=== PATIENT | female | born 1970 | race Caucasian/White ===

== ENCOUNTER 2018-06-28 15:29 | Inpatient (IN) | payer BC ==
[~2018-06-28] VITALS: Ht 149.9 cm; Wt 52.5 kg
[2018-06-28] MEDS ORDERED: FAMOTIDINE 20 MG TAB PO STA (16:06)
[2018-06-28] MEDS ORDERED: LIDOCAINE/MYLANTA 40 ML BTL PO STA (16:06)
--- NOTE | 2018-06-28 16:08 | ERD ---
ER Documentation Chief Complaint Chief Complaint Complaains of abdominal pain x3 days HPI This is a 48-year-old female presents for abdominal pain for 3 days. Pain is epigastric with radiation to the right upper quadrant, she denies fever, she endorses nausea, but no vomiting. She has no chest pain or shortness of breath. Her pain is worsened by food, is not alleviated by anything. Currently his pain is about a 5 out of 10. ROS All systems reviewed and are negative except as per history of present illness. FmHx Family History: diabetes Physical Exam Vitals Vital Signs Date Temp Pulse Resp B/P (MAP) Pulse Ox O2 O2 Flow FiO2 Time Delivery Rate 06/28/18 98.9 62 19 146/76 100 Room Air 20:46 (99) 06/28/18 98.4 58 18 145/85 100 Room Air 18:46 (105) 06/28/18 98.1 84 18 150/89 98 Room Air 18:43 (109) 06/28/18 98.0 80 20 166/92 100 15:34 (116) Physical Exam Const: No acute distress Head: Atraumatic Eyes: Normal Conjunctiva ENT: Normal External Ears, Nose and Mouth. Neck: Full range of motion. No meningismus. Resp: Clear to auscultation bilaterally Cardio: Regular rate and rhythm, no murmurs Abd: Soft, tenderness over the epigastric area, non distended. Normal bowel sounds Skin: No petechiae or rashes Back: No midline or flank tenderness Ext: No cyanosis, or edema Neur: Awake and alert Psych: Normal Mood and Affect Result Diagram: 06/28/18 1625 06/28/18 1625 Results 24 hrs Laboratory Tests Test 06/28/18 16:25 White Blood Count 11.7 10^3/ul Red Blood Count 4.79 10^6/ul Hemoglobin 14.5 g/dl Hematocrit 42.4 % Mean Corpuscular Volume 88.5 fl Mean Corpuscular Hemoglobin 30.3 pg Mean Corpuscular Hemoglobin Concent 34.2 g/dl Red Cell Distribution Width 11.7 % Platelet Count 289 10^3/UL Mean Platelet Volume 9.1 fl Immature Granulocytes % 0.600 % Neutrophils % 84.3 % Lymphocytes % 10.7 % Monocytes % 3.9 % Eosinophils % 0.1 % Basophils % 0.4 % Nucleated Red Blood Cells % 0.0 /100WBC Immature Granulocytes # 0.070 10^3/ul Neutrophils # 9.9 10^3/ul Lymphocytes # 1.3 10^3/ul Monocytes # 0.5 10^3/ul Eosinophils # 0.0 10^3/ul Basophils # 0.1 10^3/ul Nucleated Red Blood Cells # 0.0 10^3/ul Prothrombin Time 12.7 Sec Prothrombin Time Ratio 1.0 INR International Normalized Ratio 0.94 Urine Color YELLOW Urine Clarity CLOUDY Urine pH 7.0 Urine Specific [place] 1.020 Urine Ketones NEGATIVE mg/dL Urine Nitrite NEGATIVE mg/dL Urine Bilirubin NEGATIVE mg/dL Urine Urobilinogen NEGATIVE mg/dL Urine Leukocyte Esterase NEGATIVE [place]/ul Urine Microscopic RBC 11 /HPF Urine Microscopic WBC 3 /HPF Urine Squamous Epithelial Cells MODERATE /HPF Urine Bacteria FEW /HPF Urine Mucus FEW /HPF Urine Hemoglobin 2+ mg/dL Urine Glucose NEGATIVE mg/dL Urine Total Protein 1+ mg/dl Sodium Level 139 mmol/L Potassium Level 3.5 mmol/L Chloride Level 102 mmol/L Carbon Dioxide Level 30 mmol/L Anion Gap 7 Blood Urea Nitrogen 14 mg/dl Creatinine 0.60 mg/dl Est Glomerular Filtrat Rate mL/min > 60 mL/min Glucose Level 104 mg/dl Calcium Level 9.6 mg/dl Total Bilirubin 0.1 mg/dl Direct Bilirubin 0.00 mg/dl Indirect Bilirubin 0.1 mg/dl Aspartate Amino Transf (AST/SGOT) 39 IU/L Alanine Aminotransferase (ALT/SGPT) 24 IU/L Alkaline Phosphatase 54 IU/L Troponin I < 0.012 ng/ml Total Protein 8.0 g/dl Albumin 4.5 g/dl Globulin 3.50 g/dl Albumin/Globulin Ratio 1.28 Lipase 64 U/L Current Medications Medications Dose Sig/Abigail Start Time Status Last (Trade) Ordered Route PRN Stop Time Admin Dose Reason Admin Famotidine 20 mg ONCE STAT 06/28/18 DC 06/28/18 (Pepcid) PO 16:06 06/28/18 17:04 16:08 40 ml ONCE STAT 06/28/18 DC 06/28/18 Miscellaneous PO 16:06 06/28/18 17:04 Medication 16:08 (Gi Cocktail (2)) IV Flush 10 ml STK-MED 06/28/18 DC 06/28/18 (NS 10 ml) ONCE .ROUTE 19:55 06/28/18 20:45 19:56 Sodium 100 ml @ ud STK-MED 06/28/18 DC 06/28/18 Chloride ONCE .ROUTE 19:55 06/28/18 20:45 19:56 Iohexol 150 ml STK-MED 06/28/18 DC 06/28/18 (Omnipaque ONCE .ROUTE 19:55 06/28/18 20:45 300mg/ ml) 19:56 Procedures/MDM This is a very pleasant 48-year-old female presents with nausea and epigastric pain. Her LFTs were unremarkable, her ultrasound showed a possible hemangioma, this is further evaluated with a CT of the abdomen pelvis with liver protocol. This showed a 6 cm liver cyst, given her symptoms, and the underlying possibility of an infection, I treated empirically with Zosyn, and recommended admission for further workup, which includes possible IR drainage. Patient was agreeable to plan, she remained hemodynamically stable in the ED, she had no evidence of sepsis or severe sepsis. She was admitted to Dr. Soto Departure Diagnosis: Primary Impression: Abdominal pain Abdominal location: unspecified location Qualified Codes: R10.9 - U nspecified abdominal pain Additional Impression: Hepatic cyst Condition: Stable DEAN RODRIGUEZ MD Jun 28, 2018 16:08
[2018-06-28] MEDS ORDERED: SOD CHLORIDE 0.9% 100 ML ONE (19:55)
[2018-06-28] MEDS ORDERED: IOHEXOL 300MG/ML 150 ML BTL ONE (19:55)
[2018-06-28] MEDS ORDERED: PIPER-TAZO 3.375 GM IV (PMX) 100 ML IVPB ONE (22:00)
[2018-06-28 22:50] VITALS: BP 150/81; PULSE 56; RESP 17
[2018-06-28 23:07] VITALS: Ht 149.9 cm; Wt 52.5 kg
[2018-06-29] MEDS ORDERED: HYDROCODONE/APAP (5/325) TAB PO PRN ×2 (00:30→01:30)
[2018-06-29] MEDS ORDERED: NACL 0.9% 3 ML SYG IV SCH (01:30)
[2018-06-29] MEDS ORDERED: ACETAMINOPHEN 325 MG TAB PO PRN (01:30)
[2018-06-29] MEDS ORDERED: ONDANSETRON 4 MG INJ IV PRN (01:30)
--- NOTE | 2018-06-29 01:44 | HP ---
Date/Time of Note Date/Time of Note DATE: 06/29/18 TIME: 01:43 Assessment/Plan VTE Prophylaxis SCD applied (from Nsg): Yes SCD contraindicated: low risk/ambulating Pharmacological prophylaxis: NA/contraindicated Pharm contraindication: low risk/ambulating Lines/Catheters IV Catheter Type (from Nrsg): Saline Lock Assessment/Plan Assessment/Plan 1. Right upper quadrant pain, possibly secondary to hepatic cyst versus biliary given dilated CBD -Contact IR in the morning to see if this can be drained -Consider MRCP -GI consult given dilated CBD -Pain management and 2. Dilated CBD: See above 3. Central L4-5 disc protrusion: Noted on CT abdomen/pelvis -No alarming sign. see HPI Result Diagram: 06/28/18 1625 06/28/18 1625 Results 24hrs Laboratory Tests Test 06/28/18 16:25 White Blood Count 11.7 H Red Blood Count 4.79 Hemoglobin 14.5 Hematocrit 42.4 Mean Corpuscular Volume 88.5 Mean Corpuscular Hemoglobin 30.3 Mean Corpuscular Hemoglobin Concent 34.2 Red Cell Distribution Width 11.7 Platelet Count 289 Mean Platelet Volume 9.1 Immature Granulocytes % 0.600 H Neutrophils % 84.3 H Lymphocytes % 10.7 L Monocytes % 3.9 Eosinophils % 0.1 Basophils % 0.4 Nucleated Red Blood Cells % 0.0 Immature Granulocytes # 0.070 H Neutrophils # 9.9 H Lymphocytes # 1.3 Monocytes # 0.5 Eosinophils # 0.0 Basophils # 0.1 Nucleated Red Blood Cells # 0.0 Prothrombin Time 12.7 Prothrombin Time Ratio 1.0 INR International Normalized Ratio 0.94 Urine Color YELLOW Urine Clarity CLOUDY A Urine pH 7.0 Urine Specific [place] 1.020 Urine Ketones NEGATIVE Urine Nitrite NEGATIVE Urine Bilirubin NEGATIVE Urine Urobilinogen NEGATIVE Urine Leukocyte Esterase NEGATIVE Urine Microscopic RBC 11 H Urine Microscopic WBC 3 Urine Squamous Epithelial Cells MODERATE Urine Bacteria FEW A Urine Mucus FEW A Urine Hemoglobin 2+ H Urine Glucose NEGATIVE Urine Total Protein 1+ H Sodium Level 139 Potassium Level 3.5 Chloride Level 102 Carbon Dioxide Level 30 Anion Gap 7 Blood Urea Nitrogen 14 Creatinine 0.60 Est Glomerular Filtrat Rate mL/min > 60 Glucose Level 104 Calcium Level 9.6 Total Bilirubin 0.1 L Direct Bilirubin 0.00 Indirect Bilirubin 0.1 Aspartate Amino Transf (AST/SGOT) 39 Alanine Aminotransferase (ALT/SGPT) 24 Alkaline Phosphatase 54 Troponin I < 0.012 Total Protein 8.0 Albumin 4.5 Globulin 3.50 H Albumin/Globulin Ratio 1.28 Lipase 64 HPI/ROS Admit Date/Time Admit Date/Time Jun 28, 2018 at 21:43 Hx of Present Illness This is a 48-year-old female with a history of hypertension and dyslipidemia who presented to ER complaining of abdominal pain. Pain has been progressively getting worse. Mainly localized in the right upper quadrant area and also in epigastric area. Also reported nausea. Denied fever/chills, chest pain or shortness of breath. Reported similar symptoms years ago. When presented to ER, abdominal ultrasound shows Fluid collection adjacent to or within the liver anteriorly measuring 6.2 x 4.3 x 6.4 cm. This may be due to hematoma. There is an adjacent hyperechoic nodule in the liver measuring 1.4 x 1.4 x 2.4 cm which may be a hemangioma as well as CBD dilated at 6.[address] abdomen/pelvis shows. This was followed by CT abdomen/pelvis stated that the ultrasound finding is consistent with dominant hepatic cysts measuring 6.2 x 6 x 4.3 cm. Also noted on the CT of leiomyoma and central L4-5 disc protrusions. 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 Only reported occasional pain. no alarming symptoms. PMH/Family/Social Past Medical History PMH/Family/Social Past Medical History Medical History: other (see hpi) Coded Allergies: No Known Drug Allergy (Verified Allergy, Unknown, 02/08/16) Past Surgical History Past Surgical Hx: other (see hpi) Family History Significant Family History: no pertinent family hx Social History Alcohol Use: other Smoking Status: Unknown if ever smoked Drug Use: other Medications Current Medications Acetaminophen/ Hydrocodone Bitart ([place] (5/325)) 1 tab Q6H PRN PO SEVERE PAIN LEVEL 7-10 Last administered on 06/29/18at 01:29; Admin Dose 1 TAB; Start 06/29/18 at 00:30 Acetaminophen (Tylenol Tab) 650 mg Q6H PRN PO MILD PAIN(1-3)OR ELEVATED TEMP; Start 06/29/18 at 00:30 IV Flush (NS 3 ml) 3 ml PER PROTOCOL IV ; Start 06/29/18 at 01:30; Status UNV Ondansetron HCl (Zofran Inj) 4 mg Q6H PRN IV NAUSEA AND/OR VOMITING; Start 06/29/18 at 01:30; Status UNV Acetaminophen (Tylenol Tab) 650 mg Q6H PRN PO PAIN LEVEL 1-3 OR FEVER; Start 06/29/18 at 01:30; Status UNV Acetaminophen/ Hydrocodone Bitart ([place] (5/325)) 1 tab Q6H PRN PO MODERATE PAIN LEVEL 4-6; Start 06/29/18 at 01:30; Status UNV Acetaminophen/ Hydrocodone Bitart ([place] (5/325)) 2 tab Q6H PRN PO SEVERE PAIN LEVEL 7-10; Start 06/29/18 at 01:30; Status UNV Coded Allergies: No Known Allergies (Verified Allergy, Unknown, 06/29/18) Social History Smoking Status: Never smoker Exam/Review of Systems Vital Signs Vitals Vital Signs Date Temp Pulse Resp B/P (MAP) Pulse Ox O2 O2 Flow FiO2 Time Delivery Rate 06/28/18 98.1 56 17 150/81 97 22:50 (104) 06/28/18 Room Air 20:46 Exam Constitutional: other (No acute distress) Head: normocephalic, atraumatic Eyes: EOMI, PERRL Respiratory: clear to auscultation, normal air movement Cardiovascular: regular rate and rhythm, nl pulses Gastrointestinal: soft, tender Extremities: normal pulses SANTANA RICE MD Jun 29, 2018 01:43
[2018-06-29 02:22] VITALS: BP 160/90; PULSE 59; RESP 18
[2018-06-29 03:30] VITALS: BP 149/85
[2018-06-29 08:00] VITALS: BP 125/72; PULSE 64; RESP 18
[2018-06-29] MEDS: HYDROCODONE/APAP (5/325) TAB PO PRN ×2 (10:02→13:20)
--- NOTE | 2018-06-29 13:55 | CONS ---
Date/Time of Note Date/Time of Note DATE: 06/29/18 TIME: 13:38 Assessment/Plan Assessment/Plan Hospital Course Summary Assessment and Plan: Assessment: Right upper abdominal pain Left hepatic lobe dominant hepatic cyst, on imaging -Estimated at 6.2 x 6 x 4.3 cm Dilated CBD Elevated aminotransferase Plan: Monitor labs MRCP pending AFP/Hepatitis panel- already ordered and currently pending Ct guided drainage of hepatic cyst - fluid studies Patient seen in collaboration with Dr. Gutierrez Result Diagram: 06/29/18 0553 06/29/18 0553 Results 24hrs Laboratory Tests Test 06/28/18 16:25 06/29/18 05:53 White Blood Count 11.7 H 10.5 Red Blood Count 4.79 4.58 Hemoglobin 14.5 14.1 Hematocrit 42.4 41.0 Mean Corpuscular Volume 88.5 89.5 Mean Corpuscular Hemoglobin 30.3 30.8 Mean Corpuscular Hemoglobin Concent 34.2 34.4 Red Cell Distribution Width 11.7 12.1 Platelet Count 289 304 Mean Platelet Volume 9.1 9.6 Immature Granulocytes % 0.600 H 0.400 Neutrophils % 84.3 H 85.9 H Lymphocytes % 10.7 L 9.9 L Monocytes % 3.9 3.1 Eosinophils % 0.1 0.2 Basophils % 0.4 0.5 Nucleated Red Blood Cells % 0.0 0.0 Immature Granulocytes # 0.070 H 0.040 H Neutrophils # 9.9 H 9.0 H Lymphocytes # 1.3 1.0 Monocytes # 0.5 0.3 Eosinophils # 0.0 0.0 Basophils # 0.1 0.1 Nucleated Red Blood Cells # 0.0 0.0 Prothrombin Time 12.7 Prothrombin Time Ratio 1.0 INR International Normalized Ratio 0.94 Urine Color YELLOW Urine Clarity CLOUDY A Urine pH 7.0 Urine Specific [place] 1.020 Urine Ketones NEGATIVE Urine Nitrite NEGATIVE Urine Bilirubin NEGATIVE Urine Urobilinogen NEGATIVE Urine Leukocyte Esterase NEGATIVE Urine Microscopic RBC 11 H Urine Microscopic WBC 3 Urine Squamous Epithelial Cells MODERATE Urine Bacteria FEW A Urine Mucus FEW A Urine Hemoglobin 2+ H Urine Glucose NEGATIVE Urine Total Protein 1+ H Sodium Level 139 142 Potassium Level 3.5 3.9 Chloride Level 102 102 Carbon Dioxide Level 30 29 Anion Gap 7 11 Blood Urea Nitrogen 14 14 Creatinine 0.60 0.66 Est Glomerular Filtrat Rate mL/min > 60 > 60 Glucose Level 104 111 Calcium Level 9.6 9.1 Total Bilirubin 0.1 L 0.5 Direct Bilirubin 0.00 0.00 Indirect Bilirubin 0.1 0.5 Aspartate Amino Transf (AST/SGOT) 39 139 H Alanine Aminotransferase (ALT/SGPT) 24 83 H Alkaline Phosphatase 54 46 Troponin I < 0.012 Total Protein 8.0 7.3 Albumin 4.5 4.1 Globulin 3.50 H 3.20 Albumin/Globulin Ratio 1.28 1.28 Lipase 64 Phosphorus Level 4.0 Magnesium Level 2.4 CC: KIERSTEN GUTIERREZ ; Consultation Date/Type/Reason Admit Date/Time Jun 28, 2018 at 21:43 Date of Consultation: Jun 29, 2018 Type of Consult GI Reason for Consultation RUQ pain Abnormal imaging Hx of Present Illness This is a 48-year-old female with a history of hypertension and dyslipidemia who presented to ER with progressive RUQ pain radiating to back/right shoulder asso ciated with nausea and non-bloody vomiting. Imaging was obtained in the ED bladder ultrasound shows a fluid collection adjacent to or within the liver anteriorly, this may be due to hematoma. There is an adjacent hyper cardiac nodule in the liver 3 1.4 x 1.4 x 2.4 which may be an hemangioma, dilated common bile duct measuring 6.[address] abdomen/pelvis with and without contrast and liver protocol was obtained showing abnormality in the left hepatic lobe from the ultrasound is consistent with a dominant hepatic cyst with the attenuated suggesting some internal debris but there is no solid component to the abnormality or enhancement between the different phases of imaging. A smaller lesion slightly anterior and inferior to the dominant cyst has a enhancement characteristics typical of a hepatic hemangioma., Smaller left hepatic lobe cysts are also noted, hepatic steatosis with borderline hepatomegaly. 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 Currently patient denies abdominal pain post pain medication no further episodes of nausea or vomiting. She denies melena or hematochezia. Review of Systems: A 12 system, review was conducted and is negative except as noted in the HPI or here. Past Medical History Medications Current Medications Acetaminophen (Tylenol Tab) 650 mg Q6H PRN PO MILD PAIN(1-3)OR ELEVATED TEMP; Start 06/29/18 at 00:30 IV Flush (NS 3 ml) 3 ml PER PROTOCOL IV ; Start 06/29/18 at 01:30 Ondansetron HCl (Zofran Inj) 4 mg Q6H PRN IV NAUSEA AND/OR VOMITING; Start 06/29/18 at 01:30 Acetaminophen (Tylenol Tab) 650 mg Q6H PRN PO PAIN LEVEL 1-3 OR FEVER; Start 06/29/18 at 01:30 Acetaminophen/ Hydrocodone Bitart ([place] (5/325)) 1 tab Q6H PRN PO MODERATE PAIN LEVEL 4-6 Last administered on 06/29/18at 13:20; Admin Dose 1 TAB; Start 06/29/18 at 01:30 Acetaminophen/ Hydrocodone Bitart ([place] (5/325)) 2 tab Q6H PRN PO SEVERE PAIN LEVEL 7-10; Start 06/29/18 at 01:30 Allergies: Coded Allergies: No Known Allergies (Verified Allergy, Unknown, 06/29/18) Social History Smoking Status: Never smoker Exam/Review of Systems Vital Signs Vitals Vital Signs Date Temp Pulse Resp B/P (MAP) Pulse Ox O2 O2 Flow FiO2 Time Delivery Rate 06/29/18 98.1 64 18 125/72 98 Room Air 08:00 (89) Exam PHYSICAL EXAMINATION: GENERAL: Well developed, well nourished, alert & oriented x 3, in no acute distress SKIN: No lesions EYES: Pupils equal reactive to light and accommodation, no discharge. EARS/NOSE AND THROAT: Ears normal, nose normal. NECK: Supple, no masses CHEST: Inspection within normal limits. CARDIOVASCULAR: Heart: Regular rate and rhythm RESPIRATORY: Lungs clear to auscultation GASTROINTESTINAL AND LIVER: Abdomen: Soft, RUQ tenderness, non-distended, no hernias, no masses, no organomegaly, no ascites, no guarding, no rebound tenderness, normoactive bowel sounds. Rectal: Deferred. GENITOURINARY: Female genitalia within normal limits. EXTREMITIES: No cyanosis, clubbing or edema. Medications Medications Current Medications Acetaminophen (Tylenol Tab) 650 mg Q6H PRN PO MILD PAIN(1-3)OR ELEVATED TEMP; Start 06/29/18 at 00:30 IV Flush (NS 3 ml) 3 ml PER PROTOCOL IV ; Start 06/29/18 at 01:30 Ondansetron HCl (Zofran Inj) 4 mg Q6H PRN IV NAUSEA AND/OR VOMITING; Start 06/29/18 at 01:30 Acetaminophen (Tylenol Tab) 650 mg Q6H PRN PO PAIN LEVEL 1-3 OR FEVER; Start 06/29/18 at 01:30 Acetaminophen/ Hydrocodone Bitart ([place] (5/325)) 1 tab Q6H PRN PO MODERATE PAIN LEVEL 4-6 Last administered on 06/29/18at 13:20; Admin Dose 1 TAB; Start 06/29/18 at 01:30 Acetaminophen/ Hydrocodone Bitart ([place] (5/325)) 2 tab Q6H PRN PO SEVERE PAIN LEVEL 7-10; Start 06/29/18 at 01:30 CANDIDO SCHULTZ Jun 29, 2018 13:50
[2018-06-29 14:02] VITALS: BP 139/84; PULSE 59; RESP 18
--- NOTE | 2018-06-29 14:24 | PN ---
Date/Time of Note Date/Time of Note DATE: 06/29/18 TIME: 14:23 Assessment/Plan VTE Prophylaxis SCD contraindicated: low risk/ambulating Pharmacological prophylaxis: NA/contraindicated Pharm contraindication: low risk/ambulating Lines/Catheters IV Catheter Type (from Nrsg): Saline Lock Assessment/Plan Hospital Course SUBJECTIVE: Abdominal pain well controlled with analgesics. OBJECTIVE: Physical Exam General: Adequately build 48 year-old female lying in bed in no apparent distress. HEENT: Normocephalic, atraumatic. Eyes: Anicteric sclerae, conjunctivae clear. ENT: Nasal septum midline, oral mucosa moist. Neck supple, no JVD noticed. Respiratory: Bilaterally clear breath sounds. No use of accessory muscles of respiration. No adventitious breath sounds. Cardiovascular: S1, S2 heard. Regular rate and rhythm. Abdomen: Soft and nondistended. Bowel sounds positive in all 4 quadrants. Minimal epigastric tenderness. Genitourinary: Deferred. Extremities: No cyanosis, no clubbing, no edema. Peripheral pulses palpable. Neurologic: Cranial nerves II through XII grossly intact. The patient is awake, alert, and oriented. Skin: Normal skin turgor. No skin rashes. Labs & Vitals per chart ASSESSMENT & PLAN 48-year-old male with comorbidities include dyslipidemia and hypertension who came to the emergency room with chief complaint of abdominal pain that was acute in onset with reported nausea and vomiting. The patient underwent a CT scan of the abdomen and pelvis that was showing 6.2 x 64.3 cm hepatic cyst with a smaller lesion slightly anterior inferior to the dominant cyst. The patient underwent a gallbladder ultrasound that was showing dilated common bile duct measuring up to 6.2 mm. The patient's LFTs were within normal limits. The patient was admitted to inpatient setting for further treatment and evaluation. 1. Acute abdominal pain. -Etiology unclear. Abdominal imaging suggesting hepatic cyst and dilated common bile duct. -MRCP pending. -Gastroenterology consult has been obtained. 2. Dilated CBD. -Obtain MRCP. -Obtain a gastroenterology consult. 3. History of hypertension. -Blood pressure stable without any antihypertensives. 4. Dyslipidemia. -Obtain a fasting lipid panel. 5. Fluids, electrolytes, and nutrition. -Oral intake as tolerated. -IV fluids 6. DVT prophylaxis. -Frequent ambulation. 7. Plan. -Continue pain control. -Await MRCP. -Await further gastroenterology recommendations The patient was seen in collaboration with Dr. Delgado. Result Diagram: 06/29/18 0553 06/29/18 0553 Results 24hrs Laboratory Tests Test 06/28/18 16:25 06/29/18 05:53 White Blood Count 11.7 H 10.5 Red Blood Count 4.79 4.58 Hemoglobin 14.5 14.1 Hematocrit 42.4 41.0 Mean Corpuscular Volume 88.5 89.5 Mean Corpuscular Hemoglobin 30.3 30.8 Mean Corpuscular Hemoglobin Concent 34.2 34.4 Red Cell Distribution Width 11.7 12.1 Platelet Count 289 304 Mean Platelet Volume 9.1 9.6 Immature Granulocytes % 0.600 H 0.400 Neutrophils % 84.3 H 85.9 H Lymphocytes % 10.7 L 9.9 L Monocytes % 3.9 3.1 Eosinophils % 0.1 0.2 Basophils % 0.4 0.5 Nucleated Red Blood Cells % 0.0 0.0 Immature Granulocytes # 0.070 H 0.040 H Neutrophils # 9.9 H 9.0 H Lymphocytes # 1.3 1.0 Monocytes # 0.5 0.3 Eosinophils # 0.0 0.0 Basophils # 0.1 0.1 Nucleated Red Blood Cells # 0.0 0.0 Prothrombin Time 12.7 Prothrombin Time Ratio 1.0 INR International Normalized Ratio 0.94 Urine Color YELLOW Urine Clarity CLOUDY A Urine pH 7.0 Urine Specific [place] 1.020 Urine Ketones NEGATIVE Urine Nitrite NEGATIVE Urine Bilirubin NEGATIVE Urine Urobilinogen NEGATIVE Urine Leukocyte Esterase NEGATIVE Urine Microscopic RBC 11 H Urine Microscopic WBC 3 Urine Squamous Epithelial Cells MODERATE Urine Bacteria FEW A Urine Mucus FEW A Urine Hemoglobin 2+ H Urine Glucose NEGATIVE Urine Total Protein 1+ H Sodium Level 139 142 Potassium Level 3.5 3.9 Chloride Level 102 102 Carbon Dioxide Level 30 29 Anion Gap 7 11 Blood Urea Nitrogen 14 14 Creatinine 0.60 0.66 Est Glomerular Filtrat Rate mL/min > 60 > 60 Glucose Level 104 111 Calcium Level 9.6 9.1 Total Bilirubin 0.1 L 0.5 Direct Bilirubin 0.00 0.00 Indirect Bilirubin 0.1 0.5 Aspartate Amino Transf (AST/SGOT) 39 139 H Alanine Aminotransferase (ALT/SGPT) 24 83 H Alkaline Phosphatase 54 46 Troponin I < 0.012 Total Protein 8.0 7.3 Albumin 4.5 4.1 Globulin 3.50 H 3.20 Albumin/Globulin Ratio 1.28 1.28 Lipase 64 Phosphorus Level 4.0 Magnesium Level 2.4 Exam/Review of Systems Vital Signs Vitals Vital Signs Date Temp Pulse Resp B/P (MAP) Pulse Ox O2 O2 Flow FiO2 Time Delivery Rate 06/29/18 98.1 64 18 125/72 98 Room Air 08:00 (89) Medications Medications Current Medications Acetaminophen (Tylenol Tab) 650 mg Q6H PRN PO MILD PAIN(1-3)OR ELEVATED TEMP; Start 06/29/18 at 00:30 IV Flush (NS 3 ml) 3 ml PER PROTOCOL IV ; Start 06/29/18 at 01:30 Ondansetron HCl (Zofran Inj) 4 mg Q6H PRN IV NAUSEA AND/OR VOMITING; Start 06/29/18 at 01:30 Acetaminophen (Tylenol Tab) 650 mg Q6H PRN PO PAIN LEVEL 1-3 OR FEVER; Start 06/29/18 at 01:30 Acetaminophen/ Hydrocodone Bitart ([place] (5/325)) 1 tab Q6H PRN PO MODERATE PAIN LEVEL 4-6 Last administered on 06/29/18at 13:20; Admin Dose 1 TAB; Start 06/29/18 at 01:30 Acetaminophen/ Hydrocodone Bitart ([place] (5/325)) 2 tab Q6H PRN PO SEVERE PAIN LEVEL 7-10; Start 06/29/18 at 01:30 ANGELIC BASSETT NP Jun 29, 2018 14:24
[2018-06-29 19:53] VITALS: BP 136/83; PULSE 66; RESP 18
[2018-06-30 02:09] VITALS: BP 128/67; PULSE 67; RESP 18
[2018-06-30 08:00] VITALS: BP 123/77; PULSE 66; RESP 18
[2018-06-30] MEDS ORDERED: LIDOCAINE 1% (MPF) 5 ML VIAL ONE (09:01)
[2018-06-30] MEDS ORDERED: FENTAnyl 50 MCG/ML VIAL ONE (09:26)
--- NOTE | 2018-06-30 10:00 | HPN ---
Date/Time of Note Date/Time of Note DATE: 06/30/18 TIME: 10:00 Interval H&P Admission Note Pt. seen H&P reviewed: No system changes EFREN CHRISTINA MD Jun 30, 2018 10:00
[2018-06-30 11:00] VITALS: BP 145/63; PULSE 54; RESP 14
--- NOTE | 2018-06-30 11:38 | PN ---
Date/Time of Note Date/Time of Note DATE: 06/30/18 TIME: 11:35 Assessment/Plan VTE Prophylaxis Risk score (from Nsg)>0 risk: 2 SCD applied (from Nsg): Yes Pharmacological prophylaxis: NA/contraindicated Pharm contraindication: low risk/ambulating Lines/Catheters [facility]from [facility] Saline Lock Assessment/Plan Hospital Course SUBJECTIVE: Abdominal pain well controlled with analgesics. OBJECTIVE: Physical Exam General: Adequately build 48 year-old female lying in bed in no apparent distress. HEENT: Normocephalic, atraumatic. Eyes: Anicteric sclerae, conjunctivae clear. ENT: Nasal septum midline, oral mucosa moist. Neck supple, no JVD noticed. Respiratory: Bilaterally clear breath sounds. No use of accessory muscles of respiration. No adventitious breath sounds. Cardiovascular: S1, S2 heard. Regular rate and rhythm. Abdomen: Soft and nondistended. Bowel sounds positive in all 4 quadrants. Minimal epigastric tenderness. Right upper quadrant drain in place that is draining brownish yellow fluid. Genitourinary: Deferred. Extremities: No cyanosis, no clubbing, no edema. Peripheral pulses palpable. Neurologic: Cranial nerves II through XII grossly intact. The patient is awake, alert, and oriented. Skin: Normal skin turgor. No skin rashes. Labs & Vitals per chart ASSESSMENT & PLAN 48-year-old male with comorbidities include dyslipidemia and hypertension who came to the emergency room with chief complaint of abdominal pain that was acute in onset with reported nausea and vomiting. The patient underwent a CT scan of the abdomen and pelvis that was showing 6.2 x 64.3 cm hepatic cyst with a smaller lesion slightly anterior inferior to the dominant cyst. The patient underwent a gallbladder ultrasound that was showing dilated common bile duct measuring up to 6.2 mm. The patient's LFTs were within normal limits. The patient was admitted to inpatient setting for further treatment and evaluation. 1. Acute abdominal pain. -Etiology unclear. Abdominal imaging showed hepatic cysts and dilated common bile duct. -MRCP pending. -Gastroenterology following. 2. Hepatic abscess. -Status post CT-guided left lobe hepatic abscess drainage on 06/30/2018. -Interventional radiologist documented aspiration of purulent material raising concern for pyogenic liver abscess. -Obtain blood cultures. -Obtain serology and stool study for Entamoeba histolytica (patient recently visited [facility] in December 2017). -Start empiric antimicrobial therapy with third generation cephalosporin and Flagyl. 3. Dilated CBD. - MRCP negative for any obstructing lesions although CBD is dilated. -Gastroenterology following . 4. History of hypertension. -Blood pressure stable without any antihypertensives. 5. Dyslipidemia. -Fasting lipid panel unsatisfactory. -Reinforce a low-cholesterol diet. 5. Fluids, electrolytes, and nutrition. -Low-cholesterol diet. 6. DVT prophylaxis. -Frequent ambulation. 7. Plan. -Continue pain control. -Await fluid culture. -Start the patient on antimicrobial therapy after obtaining blood cultures. -Obtain Entamoeba histolytica serology and stool studies. The patient was seen in collaboration with Dr. Delgado. Result Diagram: 06/30/18 0503 06/30/18 0503 Results 24hrs Laboratory Tests Test 06/29/18 16:04 06/30/18 05:03 Triglycerides Level 142 Cholesterol Level 224 H LDL Cholesterol, Calculated 144 HDL Cholesterol 52 Cholesterol/HDL Ratio 4.3 Alpha Fetoprotein 2.59 Serum HCG, Qualitative NEGATIVE White Blood Count 5.1 # Red Blood Count 4.74 Hemoglobin 14.5 Hematocrit 43.6 Mean Corpuscular Volume 92.0 Mean Corpuscular Hemoglobin 30.6 Mean Corpuscular Hemoglobin Concent 33.3 Red Cell Distribution Width 12.0 Platelet Count 298 Mean Platelet Volume 9.4 Immature Granulocytes % 0.200 Neutrophils % 53.5 Lymphocytes % 38.4 Monocytes % 4.5 Eosinophils % 2.6 Basophils % 0.8 Nucleated Red Blood Cells % 0.0 Immature Granulocytes # 0.010 Neutrophils # 2.7 Lymphocytes # 2.0 Monocytes # 0.2 L Eosinophils # 0.1 Basophils # 0.0 Nucleated Red Blood Cells # 0.0 Activated Partial Thromboplast Time 26.6 Sodium Level 141 Potassium Level 4.0 Chloride Level 104 Carbon Dioxide Level 30 Anion Gap 7 Blood Urea Nitrogen 13 Creatinine 0.65 Est Glomerular Filtrat Rate mL/min > 60 Glucose Level 99 Calcium Level 9.0 Phosphorus Level 4.6 Magnesium Level 2.6 H Total Bilirubin 0.4 Direct Bilirubin 0.00 Indirect Bilirubin 0.4 Aspartate Amino Transf (AST/SGOT) 147 H Alanine Aminotransferase (ALT/SGPT) 146 H Alkaline Phosphatase 52 Total Protein 6.9 Albumin 4.0 Globulin 2.90 Albumin/Globulin Ratio 1.37 Hepatitis B Surface Antigen NEGATIVE Hepatitis B Core Total Antibody NEGATIVE Hepatitis C Antibody NEGATIVE Exam/Review of Systems Vital Signs Vitals Vital Signs Date Temp Pulse Resp B/P (MAP) Pulse Ox O2 O2 Flow FiO2 Time Delivery Rate 06/30/18 97.6 54 14 145/63 97 Room Air 11:00 (90) Intake and Output 06/29/18 06/29/18 06/30/18 1515:00 23:00 07:00 IntakeIntake Total 600 ml OutputOutput Total 3 ml BalanceBalance 600 ml -3 ml Medications Medications Current Medications Acetaminophen (Tylenol Tab) 650 mg Q6H PRN PO MILD PAIN(1-3)OR ELEVATED TEMP; Start 06/29/18 at 00:30 IV Flush (NS 3 ml) 3 ml PER PROTOCOL IV ; Start 06/29/18 at 01:30 Ondansetron HCl (Zofran Inj) 4 mg Q6H PRN IV NAUSEA AND/OR VOMITING; Start 06/29/18 at 01:30 Acetaminophen (Tylenol Tab) 650 mg Q6H PRN PO PAIN LEVEL 1-3 OR FEVER; Start 06/29/18 at 01:30 Acetaminophen/ Hydrocodone Bitart ([place] (5/325)) 1 tab Q6H PRN PO MODERATE PAIN LEVEL 4-6 Last administered on 06/29/18at 13:20; Admin Dose 1 TAB; Start 06/29/18 at 01:30 Acetaminophen/ Hydrocodone Bitart ([place] (5/325)) 2 tab Q6H PRN PO SEVERE PAIN LEVEL 7-10; Start 06/29/18 at 01:30 ANGELIC BASSETT NP Jun 30, 2018 11:38
[2018-06-30] MEDS: HYDROCODONE/APAP (5/325) TAB PO PRN (13:03)
[2018-06-30 14:46] VITALS: BP 138/80; PULSE 66; RESP 16
[2018-06-30] MEDS: CEFTRIAXONE 1 GM/50 ML (PMX) 50 ML IVPB SCH (15:04)
--- NOTE | 2018-06-30 15:10 | PN ---
Date/Time of Note Date/Time of Note DATE: 06/30/18 TIME: 14:59 Assessment/Plan VTE Prophylaxis Risk score (from Ns)>0 risk: 2 SCD applied (from Ns): Yes Pharmacological prophylaxis: other (scds) Lines/Catheters IV [facility]from [facility]): Saline Lock Assessment/Plan Hospital Course Summary Assessment and Plan: Assessment: Right upper abdominal pain- resolved Left hepatic lobe dominant hepatic cyst, on imaging- aspiration showed purulent drainage showing to be an abscess -s/p CT guided drain- Approximately 93 ml of purulent fluid was aspirated -Estimated at 6.2 x 6 x 4.3 cm Dilated CBD- MECP neg for CBD obstruction Elevated aminotransferase Plan: Monitor labs MRCP - Mild common bile duct dilatation. No evidence of choledocholithiasis or obstructing lesion. AFP/Hepatitis panel- neg Fluid studies pending Patient seen in collaboration with Dr. Belcher Subjective: Course reviewed with nursing staff Patient interviewed and examined All labs, imaging and other results reviewed The patient states she is feeling better, pain on admission has resolved. currently tolerating egualr diet patient states she has not had a Bm since admission. PHYSICAL EXAMINATION: GENERAL: Well developed, well nourished, alert & oriented x 3, in no acute distress SKIN: drain to RUQ EYES: Pupils equal reactive to light and accommodation, no discharge. EARS/NOSE AND THROAT: Ears normal, nose normal. NECK: Supple, no masses CHEST: Inspection within normal limits. CARDIOVASCULAR: Heart: Regular rate and rhythm RESPIRATORY: Lungs clear to auscultation GASTROINTESTINAL AND LIVER: Abdomen: Soft, RUQ tenderness- resolved, non- distended, no hernias, no masses, no organomegaly, no ascites, no guarding, no rebound tenderness, normoactive bowel sounds. Rectal: Deferred. GENITOURINARY: Female genitalia within normal limits. EXTREMITIES: No cyanosis, clubbing or edema. Result Diagram: 06/30/18 0503 06/30/18 0503 Results 24hrs Laboratory Tests Test 06/29/18 16:04 06/30/18 05:03 Triglycerides Level 142 Cholesterol Level 224 H LDL Cholesterol, Calculated 144 HDL Cholesterol 52 Cholesterol/HDL Ratio 4.3 Alpha Fetoprotein 2.59 Serum HCG, Qualitative NEGATIVE White Blood Count 5.1 # Red Blood Count 4.74 Hemoglobin 14.5 Hematocrit 43.6 Mean Corpuscular Volume 92.0 Mean Corpuscular Hemoglobin 30.6 Mean Corpuscular Hemoglobin Concent 33.3 Red Cell Distribution Width 12.0 Platelet Count 298 Mean Platelet Volume 9.4 Immature Granulocytes % 0.200 Neutrophils % 53.5 Lymphocytes % 38.4 Monocytes % 4.5 Eosinophils % 2.6 Basophils % 0.8 Nucleated Red Blood Cells % 0.0 Immature Granulocytes # 0.010 Neutrophils # 2.7 Lymphocytes # 2.0 Monocytes # 0.2 L Eosinophils # 0.1 Basophils # 0.0 Nucleated Red Blood Cells # 0.0 Activated Partial Thromboplast Time 26.6 Sodium Level 141 Potassium Level 4.0 Chloride Level 104 Carbon Dioxide Level 30 Anion Gap 7 Blood Urea Nitrogen 13 Creatinine 0.65 Est Glomerular Filtrat Rate mL/min > 60 Glucose Level 99 Calcium Level 9.0 Phosphorus Level 4.6 Magnesium Level 2.6 H Total Bilirubin 0.4 Direct Bilirubin 0.00 Indirect Bilirubin 0.4 Aspartate Amino Transf (AST/SGOT) 147 H Alanine Aminotransferase (ALT/SGPT) 146 H Alkaline Phosphatase 52 Total Protein 6.9 Albumin 4.0 Globulin 2.90 Albumin/Globulin Ratio 1.37 Hepatitis B Surface Antigen NEGATIVE Hepatitis B Core Total Antibody NEGATIVE Hepatitis C Antibody NEGATIVE Exam/Review of Systems Vital Signs Vitals Vital Signs Date Temp Pulse Resp B/P (MAP) Pulse Ox O2 O2 Flow FiO2 Time Delivery Rate 06/30/18 97.6 54 14 145/63 97 Room Air 11:00 (90) Intake and Output 06/29/18 06/29/18 06/30/18 1515:00 23:00 07:00 IntakeIntake Total 600 ml OutputOutput Total 3 ml BalanceBalance 600 ml -3 ml Medications Medications Current Medications Acetaminophen (Tylenol Tab) 650 mg Q6H PRN PO MILD PAIN(1-3)OR ELEVATED TEMP; Start 06/29/18 at 00:30 IV Flush (NS 3 ml) 3 ml PER PROTOCOL IV ; Start 06/29/18 at 01:30 Ondansetron HCl (Zofran Inj) 4 mg Q6H PRN IV NAUSEA AND/OR VOMITING; Start 06/29/18 at 01:30 Acetaminophen (Tylenol Tab) 650 mg Q6H PRN PO PAIN LEVEL 1-3 OR FEVER; Start 06/29/18 at 01:30 Acetaminophen/ Hydrocodone Bitart ([place] (5/325)) 1 tab Q6H PRN PO MODERATE PAIN LEVEL 4-6 Last administered on 06/30/18at 13:03; Admin Dose 1 TAB; Start 06/29/18 at 01:30 Acetaminophen/ Hydrocodone Bitart ([place] (5/325)) 2 tab Q6H PRN PO SEVERE PAIN LEVEL 7-10; Start 06/29/18 at 01:30 Ceftriaxone Sodium 50 ml @ 100 mls/hr Q24H IVPB ; Start 06/30/18 at 12:30 Metronidazole 100 ml @ 100 mls/hr Q8 IVPB ; Start 06/30/18 at 14:00 CANDIDO SCHULTZ Jun 30, 2018 15:09
[2018-06-30] MEDS: metroNIDAZOLE 500 MG/NS (PMX) 100 ML IVPB SCH ×2 (16:11→21:40)
[2018-06-30] MEDS ORDERED: POLYETHYLENE GLYCOL 17 GM PACKET PO PRN (17:30)
[2018-06-30 20:10] VITALS: BP 136/77; PULSE 69; RESP 18
[2018-07-01 02:00] VITALS: BP 110/63; PULSE 58; RESP 18
[2018-07-01] MEDS: metroNIDAZOLE 500 MG/NS (PMX) 100 ML IVPB SCH ×3 (05:36→21:44)
[2018-07-01 08:03] VITALS: BP 120/65; PULSE 55; RESP 18
--- NOTE | 2018-07-01 08:32 | CONS ---
Date/Time of Note Date/Time of Note DATE: 07/01/18 TIME: 08:23 Assessment/Plan Assessment/Plan Assessment/Plan 1) liver abscess fluid from drain is already clear I suspect this is more likely a liver cyst that became infected from the biliary tract I will order serology for entamoeba histolytica and echinococcus but more likely this is bacterial continue with ceftriaxone/flagyl cx from abscess is NGTD but it is less than 24 hours but pt did get a dose of zosyn on 06/28 if nausea persists will change antibiotics to unasyn 2) HTN 3) dyslipidemia Result Diagram: 07/01/18 0708 07/01/18 0708 Results 24hrs Laboratory Tests Test 07/01/18 07:08 White Blood Count 5.6 Red Blood Count 4.34 Hemoglobin 13.2 Hematocrit 39.9 Mean Corpuscular Volume 91.9 Mean Corpuscular Hemoglobin 30.4 Mean Corpuscular Hemoglobin Concent 33.1 Red Cell Distribution Width 11.9 Platelet Count 248 Mean Platelet Volume 8.9 Immature Granulocytes % 0.400 Neutrophils % 51.3 Lymphocytes % 39.1 Monocytes % 6.0 Eosinophils % 2.1 Basophils % 1.1 Nucleated Red Blood Cells % 0.0 Immature Granulocytes # 0.020 Neutrophils # 2.9 Lymphocytes # 2.2 Monocytes # 0.3 Eosinophils # 0.1 Basophils # 0.1 Nucleated Red Blood Cells # 0.0 Sodium Level 139 Potassium Level 4.3 Chloride Level 106 Carbon Dioxide Level 30 Anion Gap 3 L Blood Urea Nitrogen 12 Creatinine 0.66 Est Glomerular Filtrat Rate mL/min > 60 Glucose Level 96 Calcium Level 8.8 Phosphorus Level 4.8 Magnesium Level 2.2 Total Bilirubin 0.2 Direct Bilirubin 0.00 Indirect Bilirubin 0.2 Aspartate Amino Transf (AST/SGOT) 76 H Alanine Aminotransferase (ALT/SGPT) 111 H Alkaline Phosphatase 43 Total Protein 6.4 Albumin 3.6 Globulin 2.80 Albumin/Globulin Ratio 1.28 Consultation Date/Type/Reason Admit Date/Time Jun 28, 2018 at 21:43 Date of Consultation: Jul 01, 2018 Type of Consult ID Hx of Present Illness pt was admitted on 06/28 due to RUQ abd pain that radiated to the side she was also have sweats and felt cold these symptoms started aa few days [employer] She also had N and V no D, rashes, joint pains, SOB, cough She was in [place] in December but did not get sick while there She had a similar episode 4 years ago but went away after a few days Past Medical History Medical History: high cholesterol, hypertension Medications Current Medications Acetaminophen (Tylenol Tab) 650 mg Q6H PRN PO MILD PAIN(1-3)OR ELEVATED TEMP; Start 06/29/18 at 00:30 IV Flush (NS 3 ml) 3 ml PER PROTOCOL IV ; Start 06/29/18 at 01:30 Ondansetron HCl (Zofran Inj) 4 mg Q6H PRN IV NAUSEA AND/OR VOMITING; Start 06/29/18 at 01:30 Acetaminophen (Tylenol Tab) 650 mg Q6H PRN PO PAIN LEVEL 1-3 OR FEVER; Start 06/29/18 at 01:30 Acetaminophen/ Hydrocodone Bitart ([place] (5/325)) 1 tab Q6H PRN PO MODERATE PAIN LEVEL 4-6 Last administered on 06/30/18at 13:03; Admin Dose 1 TAB; Start 06/29/18 at 01:30 Acetaminophen/ Hydrocodone Bitart ([place] (5/325)) 2 tab Q6H PRN PO SEVERE PAIN LEVEL 7-10 Last administered on 06/30/18at 22:43; Admin Dose 2 TAB; Start 06/29/18 at 01:30 Ceftriaxone Sodium 50 ml @ 100 mls/hr Q24H IVPB Last administered on 06/30/18at 15:04; Admin Dose 100 MLS/HR; Start 06/30/18 at 12:30 Metronidazole 100 ml @ 100 mls/hr Q8 IVPB Last administered on 07/01/18at 05:36; Admin Dose 100 MLS/HR; Start 06/30/18 at 14:00 Polyethylene Glycol (Miralax) 17 gm DAILY PRN PO CONSTIPATION; Start 06/30/18 at 17:30 Allergies: Coded Allergies: No Known Allergies (Verified Allergy, Unknown, 06/29/18) Social History Smoking Status: Never smoker Exam/Review of Systems Vital Signs Vitals Vital Signs Date Temp Pulse Resp B/P (MAP) Pulse Ox O2 O2 Flow FiO2 Time Delivery Rate 07/01/18 98.2 55 18 120/65 99 08:03 (83) 07/01/18 Room Air 02:00 Intake and Output 06/30/18 06/30/18 07/01/18 1515:00 23:00 07:00 IntakeIntake Total 850 ml 570 ml OutputOutput Total 11 ml BalanceBalance 850 ml 559 ml Exam Constitutional: alert, oriented Eyes: nl sclera ENMT: mucosa pink and moist Respiratory: clear to auscultation Cardiovascular: regular rate and rhythm Gastrointestinal: soft, other (RUQ pain, accordion drain has clear serous fluid present) Neurological: other (non focal) Medications Medications Current Medications Acetaminophen (Tylenol Tab) 650 mg Q6H PRN PO MILD PAIN(1-3)OR ELEVATED TEMP; Start 06/29/18 at 00:30 IV Flush (NS 3 ml) 3 ml PER PROTOCOL IV ; Start 06/29/18 at 01:30 Ondansetron HCl (Zofran Inj) 4 mg Q6H PRN IV NAUSEA AND/OR VOMITING; Start 06/29/18 at 01:30 Acetaminophen (Tylenol Tab) 650 mg Q6H PRN PO PAIN LEVEL 1-3 OR FEVER; Start 06/29/18 at 01:30 Acetaminophen/ Hydrocodone Bitart ([place] (5/325)) 1 tab Q6H PRN PO MODERATE PAIN LEVEL 4-6 Last administered on 06/30/18at 13:03; Admin Dose 1 TAB; Start 06/29/18 at 01:30 Acetaminophen/ Hydrocodone Bitart ([place] (5/325)) 2 tab Q6H PRN PO SEVERE PAIN LEVEL 7-10 Last administered on 06/30/18at 22:43; Admin Dose 2 TAB; Start 06/29/18 at 01:30 Ceftriaxone Sodium 50 ml @ 100 mls/hr Q24H IVPB Last administered on 06/30/18at 15:04; Admin Dose 100 MLS/HR; Start 06/30/18 at 12:30 Metronidazole 100 ml @ 100 mls/hr Q8 IVPB Last administered on 07/01/18at 05:36; Admin Dose 100 MLS/HR; Start 06/30/18 at 14:00 Polyethylene Glycol (Miralax) 17 gm DAILY PRN PO CONSTIPATION; Start 06/30/18 at 17:30 HECTOR BARRERA MD Jul 01, 2018 08:32
--- NOTE | 2018-07-01 09:55 | PN ---
Date/Time of Note Date/Time of Note DATE: 07/01/18 TIME: 09:53 Assessment/Plan VTE Prophylaxis Risk score (from Nsg)>0 risk: 4 SCD applied (from Ns): Yes SCD contraindicated: low risk/ambulating Pharmacological prophylaxis: NA/contraindicated Pharm contraindication: low risk/ambulating Lines/Catheters IV Catheter Type (from [facility]): Saline Lock Assessment/Plan Hospital Course SUBJECTIVE: Abdominal pain well controlled with analgesics. Complains of nausea. OBJECTIVE: Physical Exam General: Adequately build 48 year-old female lying in bed in no apparent distress. HEENT: Normocephalic, atraumatic. Eyes: Anicteric sclerae, conjunctivae clear. ENT: Nasal septum midline, oral mucosa moist. Neck supple, no JVD noticed. Respiratory: Bilaterally clear breath sounds. No use of accessory muscles of respiration. No adventitious breath sounds. Cardiovascular: S1, S2 heard. Regular rate and rhythm. Abdomen: Soft and nondistended. Bowel sounds positive in all 4 quadrants. Minimal epigastric tenderness. Right upper quadrant drain in place that is draining brownish yellow fluid. Genitourinary: Deferred. Extremities: No cyanosis, no clubbing, no edema. Peripheral pulses palpable. Neurologic: Cranial nerves II through XII grossly intact. The patient is awake, alert, and oriented. Skin: Normal skin turgor. No skin rashes. Labs & Vitals per chart ASSESSMENT & PLAN 48-year-old male with comorbidities include dyslipidemia and hypertension who came to the emergency room with chief complaint of abdominal pain that was acute in onset with reported nausea and vomiting. The patient underwent a CT scan of the abdomen and pelvis that was showing 6.2 x 64.3 cm hepatic cyst with a smaller lesion slightly anterior inferior to the dominant cyst. The patient underwent a gallbladder ultrasound that was showing dilated common bile duct measuring up to 6.2 mm. The patient's LFTs were within normal limits. The patient was admitted to inpatient setting for further treatment and evaluation. 1. Acute abdominal pain. -Etiology unclear. Abdominal imaging showed hepatic cysts and dilated common bile duct. -MRCP negative. -Gastroenterology following. 2. Hepatic abscess. -Status post CT-guided left lobe hepatic abscess drainage on 06/30/2018. -Interventional radiologist documented aspiration of purulent material raising concern for pyogenic liver abscess. -Blood cultures obtained. -Pending serology and stool study for Entamoeba histolytica (patient recently visited [facility] in December 2017). -Started empiric antimicrobial therapy with third generation cephalosporin and Flagyl on 06/30/2018. 3. Dilated CBD. - MRCP negative for any obstructing lesions although CBD is dilated. -Gastroenterology following . 4. History of hypertension. -Blood pressure stable without any antihypertensives. 5. Dyslipidemia. -Fasting lipid panel unsatisfactory. -Reinforce a low-cholesterol diet. 5. Fluids, electrolytes, and nutrition. -Low-cholesterol diet. 6. DVT prophylaxis. -Frequent ambulation. 7. Plan. -Continue pain control. -Await fluid culture. -Pending Entamoeba histolytica serology and stool studies. -ID following. The patient was seen in collaboration with Dr. Delgado. Result Diagram: 07/01/18 0708 07/01/18 0708 Results 24hrs Laboratory Tests Test 07/01/18 07:08 White Blood Count 5.6 Red Blood Count 4.34 Hemoglobin 13.2 Hematocrit 39.9 Mean Corpuscular Volume 91.9 Mean Corpuscular Hemoglobin 30.4 Mean Corpuscular Hemoglobin Concent 33.1 Red Cell Distribution Width 11.9 Platelet Count 248 Mean Platelet Volume 8.9 Immature Granulocytes % 0.400 Neutrophils % 51.3 Lymphocytes % 39.1 Monocytes % 6.0 Eosinophils % 2.1 Basophils % 1.1 Nucleated Red Blood Cells % 0.0 Immature Granulocytes # 0.020 Neutrophils # 2.9 Lymphocytes # 2.2 Monocytes # 0.3 Eosinophils # 0.1 Basophils # 0.1 Nucleated Red Blood Cells # 0.0 Sodium Level 139 Potassium Level 4.3 Chloride Level 106 Carbon Dioxide Level 30 Anion Gap 3 L Blood Urea Nitrogen 12 Creatinine 0.66 Est Glomerular Filtrat Rate mL/min > 60 Glucose Level 96 Calcium Level 8.8 Phosphorus Level 4.8 Magnesium Level 2.2 Total Bilirubin 0.2 Direct Bilirubin 0.00 Indirect Bilirubin 0.2 Aspartate Amino Transf (AST/SGOT) 76 H Alanine Aminotransferase (ALT/SGPT) 111 H Alkaline Phosphatase 43 Total Protein 6.4 Albumin 3.6 Globulin 2.80 Albumin/Globulin Ratio 1.28 Exam/Review of Systems Vital Signs Vitals Vital Signs Date Temp Pulse Resp B/P (MAP) Pulse Ox O2 O2 Flow FiO2 Time Delivery Rate 07/01/18 98.2 55 18 120/65 99 08:03 (83) 07/01/18 Room Air 02:00 Intake and Output 06/30/18 06/30/18 07/01/18 1515:00 23:00 07:00 IntakeIntake Total 850 ml 570 ml OutputOutput Total 11 ml BalanceBalance 850 ml 559 ml Medications Medications Current Medications Acetaminophen (Tylenol Tab) 650 mg Q6H PRN PO MILD PAIN(1-3)OR ELEVATED TEMP; Start 06/29/18 at 00:30 IV Flush (NS 3 ml) 3 ml PER PROTOCOL IV ; Start 06/29/18 at 01:30 Ondansetron HCl (Zofran Inj) 4 mg Q6H PRN IV NAUSEA AND/OR VOMITING; Start 06/29/18 at 01:30 Acetaminophen (Tylenol Tab) 650 mg Q6H PRN PO PAIN LEVEL 1-3 OR FEVER; Start 06/29/18 at 01:30 Acetaminophen/ Hydrocodone Bitart ([place] (5/325)) 1 tab Q6H PRN PO MODERATE PAIN LEVEL 4-6 Last administered on 06/30/18at 13:03; Admin Dose 1 TAB; Start 06/29/18 at 01:30 Acetaminophen/ Hydrocodone Bitart ([place] (5/325)) 2 tab Q6H PRN PO SEVERE PAIN LEVEL 7-10 Last administered on 06/30/18at 22:43; Admin Dose 2 TAB; Start 06/29/18 at 01:30 Ceftriaxone Sodium 50 ml @ 100 mls/hr Q24H IVPB Last administered on 06/30/18at 15:04; Admin Dose 100 MLS/HR; Start 06/30/18 at 12:30 Metronidazole 100 ml @ 100 mls/hr Q8 IVPB Last administered on 07/01/18at 05:36; Admin Dose 100 MLS/HR; Start 06/30/18 at 14:00 Polyethylene Glycol (Miralax) 17 gm DAILY PRN PO CONSTIPATION; Start 06/30/18 at 17:30 ANGELIC BASSETT NP Jul 01, 2018 09:54
[2018-07-01] MEDS: CEFTRIAXONE 1 GM/50 ML (PMX) 50 ML IVPB SCH (13:00)
--- NOTE | 2018-07-01 13:13 | PN ---
Date/Time of Note Date/Time of Note DATE: 07/01/18 TIME: 12:59 Assessment/Plan VTE Prophylaxis Risk score (from Ns)>0 risk: 4 SCD applied (from Ns): Yes Pharmacological prophylaxis: other (scds) Lines/Catheters IV C[facility]ter Type (from [facility]): Saline Lock Assessment/Plan Hospital Course Summary Assessment and Plan: Assessment: Right upper abdominal pain- resolved Left hepatic lobe dominant hepatic cyst, on imaging- aspiration showed purulent drainage showing to be an abscess -s/p CT guided drain- Approximately 93 ml of purulent fluid was aspirated -Estimated at 6.2 x 6 x 4.3 cm Dilated CBD- MRCP neg for CBD obstruction Elevated aminotransferase Plan: Monitor labs MiraLax BID ABX per ID Patient seen in collaboration with Dr. Belcher/Farnaz Subjective: Course reviewed with nursing staff Patient interviewed and examined All labs, imaging and other results reviewed No over night events Preliminary wound culture no growth after 24 hours LFTs trending down, plan to re-imagine PHYSICAL EXAMINATION: GENERAL: Well developed, well nourished, alert & oriented x 3, in no acute distress SKIN: drain to RUQ EYES: Pupils equal reactive to light and accommodation, no discharge. EARS/NOSE AND THROAT: Ears normal, nose normal. NECK: Supple, no masses CHEST: Inspection within normal limits. CARDIOVASCULAR: Heart: Regular rate and rhythm RESPIRATORY: Lungs clear to auscultation GASTROINTESTINAL AND LIVER: Abdomen: Soft, RUQ tenderness- resolved, non- distended, no hernias, no masses, no organomegaly, no ascites, no guarding, no rebound tenderness, normoactive bowel sounds. Rectal: Deferred. GENITOURINARY: Female genitalia within normal limits. EXTREMITIES: No cyanosis, clubbing or edema. Result Diagram: 07/01/18 0708 07/01/18 0708 Results 24hrs Laboratory Tests Test 07/01/18 07:08 White Blood Count 5.6 Red Blood Count 4.34 Hemoglobin 13.2 Hematocrit 39.9 Mean Corpuscular Volume 91.9 Mean Corpuscular Hemoglobin 30.4 Mean Corpuscular Hemoglobin Concent 33.1 Red Cell Distribution Width 11.9 Platelet Count 248 Mean Platelet Volume 8.9 Immature Granulocytes % 0.400 Neutrophils % 51.3 Lymphocytes % 39.1 Monocytes % 6.0 Eosinophils % 2.1 Basophils % 1.1 Nucleated Red Blood Cells % 0.0 Immature Granulocytes # 0.020 Neutrophils # 2.9 Lymphocytes # 2.2 Monocytes # 0.3 Eosinophils # 0.1 Basophils # 0.1 Nucleated Red Blood Cells # 0.0 Sodium Level 139 Potassium Level 4.3 Chloride Level 106 Carbon Dioxide Level 30 Anion Gap 3 L Blood Urea Nitrogen 12 Creatinine 0.66 Est Glomerular Filtrat Rate mL/min > 60 Glucose Level 96 Calcium Level 8.8 Phosphorus Level 4.8 Magnesium Level 2.2 Total Bilirubin 0.2 Direct Bilirubin 0.00 Indirect Bilirubin 0.2 Aspartate Amino Transf (AST/SGOT) 76 H Alanine Aminotransferase (ALT/SGPT) 111 H Alkaline Phosphatase 43 Total Protein 6.4 Albumin 3.6 Globulin 2.80 Albumin/Globulin Ratio 1.28 Exam/Review of Systems Vital Signs Vitals Vital Signs Date Temp Pulse Resp B/P (MAP) Pulse Ox O2 O2 Flow FiO2 Time Delivery Rate 07/01/18 98.2 55 18 120/65 99 08:03 (83) 07/01/18 Room Air 02:00 Intake and Output 06/30/18 06/30/18 07/01/18 1515:00 23:00 07:00 IntakeIntake Total 850 ml 570 ml OutputOutput Total 11 ml BalanceBalance 850 ml 559 ml Medications Medications Current Medications Acetaminophen (Tylenol Tab) 650 mg Q6H PRN PO MILD PAIN(1-3)OR ELEVATED TEMP; Start 06/29/18 at 00:30 IV Flush (NS 3 ml) 3 ml PER PROTOCOL IV ; Start 06/29/18 at 01:30 Ondansetron HCl (Zofran Inj) 4 mg Q6H PRN IV NAUSEA AND/OR VOMITING; Start 06/29/18 at 01:30 Acetaminophen (Tylenol Tab) 650 mg Q6H PRN PO PAIN LEVEL 1-3 OR FEVER; Start 06/29/18 at 01:30 Acetaminophen/ Hydrocodone Bitart ([place] (5/325)) 1 tab Q6H PRN PO MODERATE PAIN LEVEL 4-6 Last administered on 06/30/18at 13:03; Admin Dose 1 TAB; Start 06/29/18 at 01:30 Acetaminophen/ Hydrocodone Bitart ([place] (5/325)) 2 tab Q6H PRN PO SEVERE PAIN LEVEL 7-10 Last administered on 06/30/18at 22:43; Admin Dose 2 TAB; Start 06/29/18 at 01:30 Ceftriaxone Sodium 50 ml @ 100 mls/hr Q24H IVPB Last administered on 06/30/18at 15:04; Admin Dose 100 MLS/HR; Start 06/30/18 at 12:30 Metronidazole 100 ml @ 100 mls/hr Q8 IVPB Last administered on 07/01/18at 05:36; Admin Dose 100 MLS/HR; Start 06/30/18 at 14:00 Polyethylene Glycol (Miralax) 17 gm DAILY PRN PO CONSTIPATION; Start 06/30/18 at 17:30 CANDIDO SCHULTZ Jul 01, 2018 13:13
[2018-07-01 14:35] VITALS: BP 129/81; PULSE 64; RESP 16
[2018-07-01 20:07] VITALS: BP 164/93; PULSE 74; RESP 18
[2018-07-01 21:00] VITALS: BP 137/68
[2018-07-01] MEDS ORDERED: POLYETHYLENE GLYCOL 17 GM PACKET PO SCH (21:00)
[2018-07-01] MEDS: HYDROCODONE/APAP (5/325) TAB PO PRN (21:51)
[2018-07-02 02:42] VITALS: BP 107/59; PULSE 60; RESP 18
[2018-07-02] MEDS: metroNIDAZOLE 500 MG/NS (PMX) 100 ML IVPB SCH (05:35)
[2018-07-02 07:35] VITALS: BP 126/73; PULSE 67; RESP 18
--- NOTE | 2018-07-02 08:14 | CONS ---
Date/Time of Note Date/Time of Note DATE: 07/02/18 TIME: 08:10 Assessment/Plan Assessment/Plan Assessment/Plan 1) liver abscess fluid from drain is already clear I suspect this is more likely a liver cyst that became infected from the biliary tract I will order serology for entamoeba histolytica and echinococcus but more likely this is bacterial continue with ceftriaxone/flagyl cx from abscess is NGTD but it is less than 24 hours but pt did get a dose of zosyn on 06/28 if nausea persists will change antibiotics to unasyn 07/02 - abscess cx remains NGTD due to nausea will d/c ceftriaxone and flagyl start IV zosyn PICC line ordered as pt will need 2-4 weeks of IV antibiotics minimal drainage from accordion drain will order RUQ u/s to evaluate the abscess cavity pt will need home IV antibiotics for 2-4 weeks depending upon how quickly the abscess cavity shrinks after the IV zosyn will switch to augmentin and the usual length of treatment for liver abscesses is 2-4 months 2) HTN 3) dyslipidemia Result Diagram: 07/02/18 0525 07/02/18 0525 Results 24hrs Laboratory Tests Test 07/02/18 05:25 White Blood Count 6.1 Red Blood Count 4.35 Hemoglobin 13.3 Hematocrit 39.9 Mean Corpuscular Volume 91.7 Mean Corpuscular Hemoglobin 30.6 Mean Corpuscular Hemoglobin Concent 33.3 Red Cell Distribution Width 11.9 Platelet Count 266 Mean Platelet Volume 9.4 Immature Granulocytes % 0.300 Neutrophils % 51.8 Lymphocytes % 38.7 Monocytes % 6.1 Eosinophils % 2.1 Basophils % 1.0 Nucleated Red Blood Cells % 0.0 Immature Granulocytes # 0.020 Neutrophils # 3.2 Lymphocytes # 2.4 Monocytes # 0.4 Eosinophils # 0.1 Basophils # 0.1 Nucleated Red Blood Cells # 0.0 Sodium Level 141 Potassium Level 4.4 Chloride Level 104 Carbon Dioxide Level 28 Anion Gap 9 # Blood Urea Nitrogen 11 Creatinine 0.60 Est Glomerular Filtrat Rate mL/min > 60 Glucose Level 96 Calcium Level 8.9 Phosphorus Level 4.3 Magnesium Level 2.3 Total Bilirubin 0.1 L Direct Bilirubin 0.00 Indirect Bilirubin 0.1 Aspartate Amino Transf (AST/SGOT) 59 H Alanine Aminotransferase (ALT/SGPT) 95 H Alkaline Phosphatase 42 Total Protein 6.6 Albumin 3.6 Globulin 3.00 Albumin/Globulin Ratio 1.20 Consultation Date/Type/Reason Admit Date/Time Jun 28, 2018 at 21:43 Initial Consult Date 07/01/18 Type of Consult ID 24 HR Interval Summary Free Text/Dictation pt still has nausea but no vomiting no abd pain Exam/Review of Systems Vital Signs Vitals Vital Signs Date Temp Pulse Resp B/P (MAP) Pulse Ox O2 O2 Flow FiO2 Time Delivery Rate 07/02/18 98.1 67 18 126/73 96 Room Air 07:35 (90) Intake and Output 07/01/18 07/01/18 07/02/18 1515:00 23:00 07:00 IntakeIntake Total 50 ml 1600 ml 200 ml OutputOutput Total 10 ml BalanceBalance 50 ml 1600 ml 190 ml Exam Constitutional: alert, oriented Eyes: nl sclera ENMT: mucosa pink and moist Respiratory: clear to auscultation Cardiovascular: regular rate and rhythm Gastrointestinal: soft, non-tender, other (accordion drain has clear serous fluid) Medications Medications Current Medications Acetaminophen (Tylenol Tab) 650 mg Q6H PRN PO MILD PAIN(1-3)OR ELEVATED TEMP; Start 06/29/18 at 00:30 IV Flush (NS 3 ml) 3 ml PER PROTOCOL IV ; Start 06/29/18 at 01:30 Ondansetron HCl (Zofran Inj) 4 mg Q6H PRN IV NAUSEA AND/OR VOMITING; Start 06/29/18 at 01:30 Acetaminophen (Tylenol Tab) 650 mg Q6H PRN PO PAIN LEVEL 1-3 OR FEVER; Start 06/29/18 at 01:30 Acetaminophen/ Hydrocodone Bitart ([place] (5/325)) 1 tab Q6H PRN PO MODERATE PAIN LEVEL 4-6 Last administered on 07/01/18at 21:51; Admin Dose 1 TAB; Start 06/29/18 at 01:30 Acetaminophen/ Hydrocodone Bitart ([place] (5/325)) 2 tab Q6H PRN PO SEVERE PAIN LEVEL 7-10 Last administered on 06/30/18at 22:43; Admin Dose 2 TAB; Start 06/29/18 at 01:30 Polyethylene Glycol (Miralax) 17 gm BID PO ; Start 07/01/18 at 21:00 Lidocaine (Xylocaine 1% (Mpf)) 5 ml ONCE ONCE SC ; Start 07/02/18 at 08:30; Stop 07/02/18 at 08:31; Status UNV Piperacillin Sod/ Tazobactam Sod 100 ml @ 200 mls/hr Q6 IVPB ; Start 07/02/18 at 12:00; Status UNV HECTOR BARRERA MD Jul 02, 2018 08:14
[2018-07-02] MEDS ORDERED: LIDOCAINE 1% (MPF) 5 ML VIAL SC ONE ×2 (08:30→12:30)
--- NOTE | 2018-07-02 10:13 | PN ---
Date/Time of Note Date/Time of Note DATE: 07/02/18 TIME: 10:09 Assessment/Plan VTE Prophylaxis Risk score (from Nsg)>0 risk: 1 SCD applied (from Nsg): Yes Pharmacological prophylaxis: NA/contraindicated Pharm contraindication: low risk/ambulating Lines/Catheters [facility] Assessment/Plan Hospital Course SUBJECTIVE: Abdominal pain well controlled. Complains of nausea. OBJECTIVE: Physical Exam General: Adequately build 48 year-old female lying in bed in no apparent distress. HEENT: Normocephalic, atraumatic. Eyes: Anicteric sclerae, conjunctivae clear. ENT: Nasal septum midline, oral mucosa moist. Neck supple, no JVD noticed. Respiratory: Bilaterally clear breath sounds. No use of accessory muscles of respiration. No adventitious breath sounds. Cardiovascular: S1, S2 heard. Regular rate and rhythm. Abdomen: Soft and nondistended. Bowel sounds positive in all 4 quadrants. Minimal epigastric tenderness. Right upper quadrant drain in place that is draining brownish yellow fluid. Genitourinary: Deferred. Extremities: No cyanosis, no clubbing, no edema. Peripheral pulses palpable. Neurologic: Cranial nerves II through XII grossly intact. The patient is awake, alert, and oriented. Skin: Normal skin turgor. No skin rashes. Labs & Vitals per chart ASSESSMENT & PLAN 48-year-old male with comorbidities include dyslipidemia and hypertension who came to the emergency room with chief complaint of abdominal pain that was acute in onset with reported nausea and vomiting. The patient underwent a CT scan of the abdomen and pelvis that was showing 6.2 x 64.3 cm hepatic cyst with a smaller lesion slightly anterior inferior to the dominant cyst. The patient underwent a gallbladder ultrasound that was showing dilated common bile duct measuring up to 6.2 mm. The patient's LFTs were within normal limits. The patient was admitted to inpatient setting for further treatment and evaluation. 1. Hepatic abscess. -Status post CT-guided left lobe hepatic abscess drainage on 06/30/2018. -Interventional radiologist documented aspiration of purulent material raising concern for pyogenic liver abscess. -Blood cultures obtained. -Pending serology and stool study for Entamoeba histolytica (patient recently visited [facility] in December 2017). -Started empiric antimicrobial therapy with third generation cephalosporin and Flagyl on 06/30/2018 that was switched to Zosyn because of nausea. -Cultures negative to date. PICC line ordered for long-term IV antibiotic therapy. 2. Dilated CBD. -MRCP negative for any obstructing lesions although CBD is dilated. -Gastroenterology following . 3. History of hypertension. -Blood pressure stable without any antihypertensives. 4. Dyslipidemia. -Fasting lipid panel unsatisfactory. -Reinforce a low-cholesterol diet. 5. Fluids, electrolytes, and nutrition. -Low-cholesterol diet. 6. DVT prophylaxis. -Frequent ambulation. 7. Plan. -Continue pain control. -Await fluid culture. -Pending Entamoeba histolytica serology and stool studies. -ID following. -Plan for repeat ultrasound of the liver for evaluation of the size of the abscess and PICC line insertion for long-term IV antibiotic therapy. -Appreciate ID input. The patient was seen in collaboration with Dr. Delgado. Result Diagram: 07/02/1825 07/02/18 0525 Results 24hrs Laboratory Tests Test 07/02/18 05:25 White Blood Count 6.1 Red Blood Count 4.35 Hemoglobin 13.3 Hematocrit 39.9 Mean Corpuscular Volume 91.7 Mean Corpuscular Hemoglobin 30.6 Mean Corpuscular Hemoglobin Concent 33.3 Red Cell Distribution Width 11.9 Platelet Count 266 Mean Platelet Volume 9.4 Immature Granulocytes % 0.300 Neutrophils % 51.8 Lymphocytes % 38.7 Monocytes % 6.1 Eosinophils % 2.1 Basophils % 1.0 Nucleated Red Blood Cells % 0.0 Immature Granulocytes # 0.020 Neutrophils # 3.2 Lymphocytes # 2.4 Monocytes # 0.4 Eosinophils # 0.1 Basophils # 0.1 Nucleated Red Blood Cells # 0.0 Sodium Level 141 Potassium Level 4.4 Chloride Level 104 Carbon Dioxide Level 28 Anion Gap 9 # Blood Urea Nitrogen 11 Creatinine 0.60 Est Glomerular Filtrat Rate mL/min > 60 Glucose Level 96 Calcium Level 8.9 Phosphorus Level 4.3 Magnesium Level 2.3 Total Bilirubin 0.1 L Direct Bilirubin 0.00 Indirect Bilirubin 0.1 Aspartate Amino Transf (AST/SGOT) 59 H Alanine Aminotransferase (ALT/SGPT) 95 H Alkaline Phosphatase 42 Total Protein 6.6 Albumin 3.6 Globulin 3.00 Albumin/Globulin Ratio 1.20 Exam/Review of Systems Vital Signs Vitals Vital Signs Date Temp Pulse Resp B/P (MAP) Pulse Ox O2 O2 Flow FiO2 Time Delivery Rate 07/02/18 98.1 67 18 126/73 96 Room Air 07:35 (90) Intake and Output 07/01/18 07/01/18 07/02/18 1515:00 23:00 07:00 IntakeIntake Total 50 ml 1600 ml 200 ml OutputOutput Total 10 ml BalanceBalance 50 ml 1600 ml 190 ml Medications Medications Current Medications Acetaminophen (Tylenol Tab) 650 mg Q6H PRN PO MILD PAIN(1-3)OR ELEVATED TEMP; Start 06/29/18 at 00:30 IV Flush (NS 3 ml) 3 ml PER PROTOCOL IV ; Start 06/29/18 at 01:30 Ondansetron HCl (Zofran Inj) 4 mg Q6H PRN IV NAUSEA AND/OR VOMITING; Start 06/29/18 at 01:30 Acetaminophen (Tylenol Tab) 650 mg Q6H PRN PO PAIN LEVEL 1-3 OR FEVER; Start 06/29/18 at 01:30 Acetaminophen/ Hydrocodone Bitart ([place] (5/325)) 1 tab Q6H PRN PO MODERATE PAIN LEVEL 4-6 Last administered on 07/01/18at 21:51; Admin Dose 1 TAB; Start 06/29/18 at 01:30 Acetaminophen/ Hydrocodone Bitart ([place] (5/325)) 2 tab Q6H PRN PO SEVERE PAIN LEVEL 7-10 Last administered on 06/30/18at 22:43; Admin Dose 2 TAB; Start 06/29/18 at 01:30 Polyethylene Glycol (Miralax) 17 gm BID PO ; Start 07/01/18 at 21:00 Piperacillin Sod/ Tazobactam Sod 100 ml @ 200 mls/hr Q6 IVPB ; Start 07/02/18 at 12:00 ANGELIC BASSETT NP Jul 02, 2018 10:13
[2018-07-02] MEDS ORDERED: PIPER-TAZO 3.375 GM IV (PMX) 100 ML IVPB SCH (12:00)
--- NOTE | 2018-07-02 14:06 | PN ---
Date/Time of Note Date/Time of Note DATE: 07/02/18 TIME: 13:58 Assessment/Plan VTE Prophylaxis Risk score (from Ns)>0 risk: 1 SCD applied (from Ns): Yes Pharmacological prophylaxis: other (scds) Lines/Catheters [facility]from [facility] Saline Lock Assessment/Plan Hospital Course Summary Assessment and Plan: Assessment: Right upper abdominal pain- resolved Left hepatic lobe dominant hepatic cyst, on imaging- aspiration showed purulent drainage showing to be an abscess -s/p CT guided drain- Approximately 93 ml of purulent fluid was aspirated -Estimated at 6.2 x 6 x 4.3 cm Dilated CBD- MRCP neg for CBD obstruction Elevated aminotransferase- improving Plan: Monitor labs- lfs currently trending down MiraLax BID- PRN ABX per ID- has changed to Zosyn given s.e. of nausea- abd u/s hs also been ordered to assess abscess cavity Patient seen in collaboration with Dr. Belcher/Farnaz Subjective: Course reviewed with nursing staff Patient interviewed and examined All labs, imaging and other results reviewed No over night events S/p PICC line placement Pt states she has had x3 BM from yesterday, feeling well. Awaiting abd u/s PHYSICAL EXAMINATION: GENERAL: Well developed, well nourished, alert & oriented x 3, in no acute distress SKIN: drain to RUQ EYES: Pupils equal reactive to light and accommodation, no discharge. EARS/NOSE AND THROAT: Ears normal, nose normal. NECK: Supple, no masses CHEST: Inspection within normal limits. CARDIOVASCULAR: Heart: Regular rate and rhythm RESPIRATORY: Lungs clear to auscultation GASTROINTESTINAL AND LIVER: Abdomen: Soft, RUQ tenderness- resolved, non- distended, no hernias, no masses, no organomegaly, no ascites, no guarding, no rebound tenderness, normoactive bowel sounds. Rectal: Deferred. GENITOURINARY: Female genitalia within normal limits. EXTREMITIES: No cyanosis, clubbing or edema. Result Diagram: 07/02/1852407/02/1825 Results 24hrs Laboratory Tests Test 07/02/18 05:25 White Blood Count 6.1 Red Blood Count 4.35 Hemoglobin 13.3 Hematocrit 39.9 Mean Corpuscular Volume 91.7 Mean Corpuscular Hemoglobin 30.6 Mean Corpuscular Hemoglobin Concent 33.3 Red Cell Distribution Width 11.9 Platelet Count 266 Mean Platelet Volume 9.4 Immature Granulocytes % 0.300 Neutrophils % 51.8 Lymphocytes % 38.7 Monocytes % 6.1 Eosinophils % 2.1 Basophils % 1.0 Nucleated Red Blood Cells % 0.0 Immature Granulocytes # 0.020 Neutrophils # 3.2 Lymphocytes # 2.4 Monocytes # 0.4 Eosinophils # 0.1 Basophils # 0.1 Nucleated Red Blood Cells # 0.0 Sodium Level 141 Potassium Level 4.4 Chloride Level 104 Carbon Dioxide Level 28 Anion Gap 9 # Blood Urea Nitrogen 11 Creatinine 0.60 Est Glomerular Filtrat Rate mL/min > 60 Glucose Level 96 Calcium Level 8.9 Phosphorus Level 4.3 Magnesium Level 2.3 Total Bilirubin 0.1 L Direct Bilirubin 0.00 Indirect Bilirubin 0.1 Aspartate Amino Transf (AST/SGOT) 59 H Alanine Aminotransferase (ALT/SGPT) 95 H Alkaline Phosphatase 42 Total Protein 6.6 Albumin 3.6 Globulin 3.00 Albumin/Globulin Ratio 1.20 Exam/Review of Systems Vital Signs Vitals Vital Signs Date Temp Pulse Resp B/P (MAP) Pulse Ox O2 O2 Flow FiO2 Time Delivery Rate 07/02/18 98.1 67 18 126/73 96 Room Air 07:35 (90) Intake and Output 07/01/18 07/01/18 07/02/18 1515:00 23:00 07:00 IntakeIntake Total 50 ml 1600 ml 200 ml OutputOutput Total 10 ml BalanceBalance 50 ml 1600 ml 190 ml Medications Medications Current Medications Acetaminophen (Tylenol Tab) 650 mg Q6H PRN PO MILD PAIN(1-3)OR ELEVATED TEMP; Start 06/29/18 at 00:30 IV Flush (NS 3 ml) 3 ml PER PROTOCOL IV ; Start 06/29/18 at 01:30 Ondansetron HCl (Zofran Inj) 4 mg Q6H PRN IV NAUSEA AND/OR VOMITING; Start 06/29/18 at 01:30 Acetaminophen (Tylenol Tab) 650 mg Q6H PRN PO PAIN LEVEL 1-3 OR FEVER; Start 06/29/18 at 01:30 Acetaminophen/ Hydrocodone Bitart ([place] (5/325)) 1 tab Q6H PRN PO MODERATE PAIN LEVEL 4-6 Last administered on 07/01/18at 21:51; Admin Dose 1 TAB; Start 06/29/18 at 01:30 Acetaminophen/ Hydrocodone Bitart ([place] (5/325)) 2 tab Q6H PRN PO SEVERE PAIN LEVEL 7-10 Last administered on 06/30/18at 22:43; Admin Dose 2 TAB; Start 06/29/18 at 01:30 Polyethylene Glycol (Miralax) 17 gm BID PO ; Start 07/01/18 at 21:00 Piperacillin Sod/ Tazobactam Sod 100 ml @ 200 mls/hr Q6 IVPB ; Start 07/02/18 at 12:00 CANDIDO SCHULTZ Jul 02, 2018 14:06
[2018-07-02 14:25] VITALS: BP 162/92; PULSE 62; RESP 18
[2018-07-02] MEDS ORDERED: POLYETHYLENE GLYCOL 17 GM PACKET PO PRN (15:30)
[2018-07-02 20:00] VITALS: BP 143/74; PULSE 68; RESP 18
[2018-07-02] MEDS: PIPER-TAZO 3.375 GM IV (PMX) 100 ML IVPB SCH (20:08)
[2018-07-02] MEDS: HYDROCODONE/APAP (5/325) TAB PO PRN (22:45)
[2018-07-02] MEDS ORDERED: AL HYDROX/MG HYDROX/SIMETH 30 ML CUP PO PRN (23:30)
[2018-07-02] MEDS ORDERED: PANTOPRAZOLE (EC) 40 MG TAB PO ONE ×2 (23:59)
[2018-07-03] MEDS: PIPER-TAZO 3.375 GM IV (PMX) 100 ML IVPB SCH ×4 (00:04→17:03)
[2018-07-03 02:00] VITALS: BP 131/73; PULSE 64; RESP 18
[2018-07-03] MEDS: PANTOPRAZOLE (EC) 40 MG TAB PO SCH (06:36)
[2018-07-03 08:49] VITALS: BP 139/74; PULSE 63; RESP 18
--- NOTE | 2018-07-03 10:10 | CONS ---
Date/Time of Note Date/Time of Note DATE: 07/03/18 TIME: 10:08 Assessment/Plan Assessment/Plan Assessment/Plan 1) liver abscess fluid from drain is already clear I suspect this is more likely a liver cyst that became infected from the biliary tract I will order serology for entamoeba histolytica and echinococcus but more likely this is bacterial continue with ceftriaxone/flagyl cx from abscess is NGTD but it is less than 24 hours but pt did get a dose of zosyn on 06/28 if nausea persists will change antibiotics to unasyn 07/02 - abscess cx remains NGTD due to nausea will d/c ceftriaxone and flagyl start IV zosyn PICC line ordered as pt will need 2-4 weeks of IV antibiotics minimal drainage from accordion drain will order RUQ u/s to evaluate the abscess cavity pt will need home IV antibiotics for 2-4 weeks depending upon how quickly the abscess cavity shrinks after the IV zosyn will switch to augmentin and the usual length of treatment for liver abscesses is 2-4 months 07/03 - picc line in place abd u/s shows much smaller abscess, abscess cx remains Neg when drainage stops then would get CT abd to see if drain could be removed home health referral made in anticipation of home IV zosyn 2) HTN 3) dyslipidemia Result Diagram: 07/02/1825 07/02/1825 Consultation Date/Type/Reason Admit Date/Time Jun 28, 2018 at 21:43 Initial Consult Date 07/01/18 Type of Consult ID 24 HR Interval Summary Free Text/Dictation doing well no D, V no abd pain Exam/Review of Systems Vital Signs Vitals Vital Signs Date Temp Pulse Resp B/P (MAP) Pulse Ox O2 O2 Flow FiO2 Time Delivery Rate 07/03/18 98.3 63 18 139/74 95 08:49 (95) 07/02/18 Room Air 14:25 Intake and Output 07/02/18 07/02/18 07/03/18 1515:00 23:00 07:00 IntakeIntake Total 240 ml 520 ml 100 ml OutputOutput Total 10 ml BalanceBalance 240 ml 510 ml 100 ml Exam Constitutional: alert, oriented Eyes: nl sclera ENMT: mucosa pink and moist Respiratory: clear to auscultation Cardiovascular: regular rate and rhythm Gastrointestinal: soft, non-tender Medications Medications Current Medications Acetaminophen (Tylenol Tab) 650 mg Q6H PRN PO MILD PAIN(1-3)OR ELEVATED TEMP; Start 06/29/18 at 00:30 IV Flush (NS 3 ml) 3 ml PER PROTOCOL IV ; Start 06/29/18 at 01:30 Ondansetron HCl (Zofran Inj) 4 mg Q6H PRN IV NAUSEA AND/OR VOMITING; Start 06/29/18 at 01:30 Acetaminophen (Tylenol Tab) 650 mg Q6H PRN PO PAIN LEVEL 1-3 OR FEVER; Start 06/29/18 at 01:30 Acetaminophen/ Hydrocodone Bitart ([place] (5/325)) 1 tab Q6H PRN PO MODERATE PAIN LEVEL 4-6 Last administered on 07/02/18at 22:45; Admin Dose 1 TAB; Start 06/29/18 at 01:30 Acetaminophen/ Hydrocodone Bitart ([place] (5/325)) 2 tab Q6H PRN PO SEVERE PAIN LEVEL 7-10 Last administered on 06/30/18at 22:43; Admin Dose 2 TAB; Start 06/29/18 at 01:30 Polyethylene Glycol (Miralax) 17 gm BID PRN PO constipation; Start 07/02/18 at 15:30 IV Flush (NS 10 ml) 10 ml PRN PRN IV FLUSH LINE; Start 07/02/18 at 16:30 Piperacillin Sod/ Tazobactam Sod 100 ml @ 200 mls/hr Q6 IVPB Last administered on 07/03/18at 06:36; Admin Dose 200 MLS/HR; Start 07/02/18 at 20:00 Al Hydrox/Mg Hydrox/Simethicone (Mag-Al Plus) 30 ml Q4H PRN PO GASTROINTESTINAL UPSET; Start 07/02/18 at 23:30 Pantoprazole (Protonix Tab) 40 mg DAILY@06 PO Last administered on 07/03/18at 06:36; Admin Dose 40 MG; Start 07/03/18 at 06:00 HECTOR BARRERA MD Jul 03, 2018 10:10
[2018-07-03 14:51] VITALS: BP 138/87; PULSE 63; RESP 18
--- NOTE | 2018-07-03 16:09 | PN ---
Date/Time of Note Date/Time of Note DATE: 07/03/18 TIME: 16:00 Assessment/Plan VTE Prophylaxis Risk score (from Ns)>0 risk: 2 SCD applied (from Ns): No SCD contraindicated: low risk/ambulating Pharmacological prophylaxis: NA/contraindicated Pharm contraindication: liver dx Lines/Catheters IV [facility] ([facility] PICC Line Central line still needed: Yes Assessment/Plan Assessment/Plan Assessment: Right upper abdominal pain- resolved Left hepatic lobe dominant hepatic cyst, on imaging- aspiration showed purulent drainage showing to be an abscess -s/p CT guided drain- Approximately 93 ml of purulent fluid was aspirated -Estimated at 6.2 x 6 x 4.3 cm Dilated CBD- MRCP neg for CBD obstruction Elevated aminotransferase- improving Plan: Monitor labs- lfs currently trending down MiraLax BID- PRN ABX per ID- has changed to Zosyn given s.e. of nausea Continue present regimen Patient seen in collaboration with Dr. Belcher/Farnaz Subjective: Course reviewed with nursing staff Patient interviewed and examined All labs, imaging and other results reviewed No over night events PICC line in place. Patient is seen by ID with recommendations, patient reports resolution of nausea with change of antibiotics. She is tolerating diet well. Having regular bowel movements. Abd US shows small residual abscess can be decreased from the last imaging study. Results of ultrasound discussed with the patient. Discharge planning in progress once the drain can be dc'd. PHYSICAL EXAMINATION: GENERAL: Well developed, well nourished, alert & oriented x 3, in no acute distress SKIN: drain to RUQ EYES: Pupils equal reactive to light and accommodation, no discharge. EARS/NOSE AND THROAT: Ears normal, nose normal. NECK: Supple, no masses CHEST: Inspection within normal limits. CARDIOVASCULAR: Heart: Regular rate and rhythm RESPIRATORY: Lungs clear to auscultation GASTROINTESTINAL AND LIVER: Abdomen: Soft, RUQ tenderness- resolved, non- distended, no hernias, no masses, no organomegaly, no ascites, no guarding, no rebound tenderness, normoactive bowel sounds. Rectal: Deferred. GENITOURINARY: Female genitalia within normal limits. EXTREMITIES: No cyanosis, clubbing or edema. Result Diagram: 07/02/1852407/02/18524 CC: SPIKE BEAVER MD ; Exam/Review of Systems Vital Signs Vitals Vital Signs Date Temp Pulse Resp B/P (MAP) Pulse Ox O2 O2 Flow FiO2 Time Delivery Rate 07/03/18 98.4 63 18 138/87 97 14:51 (104) 07/02/18 Room Air 14:25 Intake and Output 07/02/18 07/02/18 07/03/18 1515:00 23:00 07:00 IntakeIntake Total 240 ml 520 ml 100 ml OutputOutput Total 10 ml BalanceBalance 240 ml 510 ml 100 ml Medications Medications Current Medications Acetaminophen (Tylenol Tab) 650 mg Q6H PRN PO MILD PAIN(1-3)OR ELEVATED TEMP; Start 06/29/18 at 00:30 IV Flush (NS 3 ml) 3 ml PER PROTOCOL IV ; Start 06/29/18 at 01:30 Ondansetron HCl (Zofran Inj) 4 mg Q6H PRN IV NAUSEA AND/OR VOMITING; Start 06/29/18 at 01:30 Acetaminophen (Tylenol Tab) 650 mg Q6H PRN PO PAIN LEVEL 1-3 OR FEVER; Start 06/29/18 at 01:30 Acetaminophen/ Hydrocodone Bitart ([place] (5/325)) 1 tab Q6H PRN PO MODERATE PAIN LEVEL 4-6 Last administered on 07/02/18at 22:45; Admin Dose 1 TAB; Start 06/29/18 at 01:30 Acetaminophen/ Hydrocodone Bitart ([place] (5/325)) 2 tab Q6H PRN PO SEVERE PAIN LEVEL 7-10 Last administered on 06/30/18at 22:43; Admin Dose 2 TAB; Start 06/29/18 at 01:30 Polyethylene Glycol (Miralax) 17 gm BID PRN PO constipation; Start 07/02/18 at 15:30 IV Flush (NS 10 ml) 10 ml PRN PRN IV FLUSH LINE; Start 07/02/18 at 16:30 Piperacillin Sod/ Tazobactam Sod 100 ml @ 200 mls/hr Q6 IVPB Last administered on 07/03/18at 12:26; Admin Dose 200 MLS/HR; Start 07/02/18 at 20:00 Al Hydrox/Mg Hydrox/Simethicone (Mag-Al Plus) 30 ml Q4H PRN PO GASTROINTESTINAL UPSET; Start 07/02/18 at 23:30 Pantoprazole (Protonix Tab) 40 mg DAILY@06 PO Last administered on 07/03/18at 0 6:36; Admin Dose 40 MG; Start 07/03/18 at 06:00 GAYLE PEREZ NP Jul 03, 2018 16:09
--- NOTE | 2018-07-03 17:14 | PN ---
Date/Time of Note Date/Time of Note DATE: 07/03/18 TIME: 17:11 Assessment/Plan VTE Prophylaxis Risk score (from Nsg)>0 risk: 2 SCD applied (from Ns): No SCD contraindicated: low risk/ambulating Pharmacological prophylaxis: NA/contraindicated Pharm contraindication: low risk/ambulating Lines/Catheters IV Catheter Type (from Nrsg): PICC Line Central line still needed: Yes Assessment/Plan Hospital Course SUBJECTIVE: Denies any pain. Denies any nausea. OBJECTIVE: Physical Exam General: Adequately build 48 year-old female lying in bed in no apparent distress. HEENT: Normocephalic, atraumatic. Eyes: Anicteric sclerae, conjunctivae clear. ENT: Nasal septum midline, oral mucosa moist. Neck supple, no JVD noticed. Respiratory: Bilaterally clear breath sounds. No use of accessory muscles of respiration. No adventitious breath sounds. Cardiovascular: S1, S2 heard. Regular rate and rhythm. Abdomen: Soft and nondistended. Bowel sounds positive in all 4 quadrants. Minimal epigastric tenderness. Right upper quadrant drain in place that is draining brownish yellow fluid. Genitourinary: Deferred. Extremities: No cyanosis, no clubbing, no edema. Peripheral pulses palpable. Neurologic: Cranial nerves II through XII grossly intact. The patient is awake, alert, and oriented. Skin: Normal skin turgor. No skin rashes. Labs & Vitals per chart ASSESSMENT & PLAN 48-year-old male with comorbidities include dyslipidemia and hypertension who came to the emergency room with chief complaint of abdominal pain that was acute in onset with reported nausea and vomiting. The patient underwent a CT scan of the abdomen and pelvis that was showing 6.2 x 64.3 cm hepatic cyst with a smaller lesion slightly anterior inferior to the dominant cyst. The patient underwent a gallbladder ultrasound that was showing dilated common bile duct measuring up to 6.2 mm. The patient's LFTs were within normal limits. The patient was admitted to inpatient setting for further treatment and evaluation. 1. Hepatic abscess. -Status post CT-guided left lobe hepatic abscess drainage on 06/30/2018. -Interventional radiologist documented aspiration of purulent material raising concern for pyogenic liver abscess. -Blood cultures obtained. -Pending serology and stool study for Entamoeba histolytica (patient recently visited [facility] in December 2017). -Started empiric antimicrobial therapy with third generation cephalosporin and Flagyl on 06/30/2018 that was switched to Zosyn because of nausea. -Cultures negative to date. S/P PICC line insertion for long-term IV antibiotic therapy. 2. Dilated CBD. -MRCP negative for any obstructing lesions although CBD is dilated. -Gastroenterology following . 3. History of hypertension. -Blood pressure stable without any antihypertensives. 4. Dyslipidemia. -Fasting lipid panel unsatisfactory. -Reinforce a low-cholesterol diet. 5. Fluids, electrolytes, and nutrition. -Low-cholesterol diet. 6. DVT prophylaxis. -Frequent ambulation. 7. Plan. -Continue pain control. -Await fluid culture. -Pending Entamoeba histolytica serology and stool studies. -ID following. -Plan for repeat ultrasound of the liver showing decreased size of the abscess. -Needs the drain to be discontinued before discharging the patient Vs arrange for outpatient removal of the drain once the drainage is almost none. The patient was seen in collaboration with Dr. Delgado. Result Diagram: 07/02/1852407/02/18524 Exam/Review of Systems Vital Signs Vitals Vital Signs Date Temp Pulse Resp B/P (MAP) Pulse Ox O2 O2 Flow FiO2 Time Delivery Rate 07/03/18 98.4 63 18 138/87 97 14:51 (104) 07/02/18 Room Air 14:25 Intake and Output 07/02/18 07/02/18 07/03/18 1414:59 22:59 06:59 IntakeIntake Total 240 ml 520 ml 100 ml OutputOutput Total 10 ml BalanceBalance 240 ml 510 ml 100 ml Medications Medications Current Medications Acetaminophen (Tylenol Tab) 650 mg Q6H PRN PO MILD PAIN(1-3)OR ELEVATED TEMP; Start 06/29/18 at 00:30 IV Flush (NS 3 ml) 3 ml PER PROTOCOL IV ; Start 06/29/18 at 01:30 Ondansetron HCl (Zofran Inj) 4 mg Q6H PRN IV NAUSEA AND/OR VOMITING; Start 06/29/18 at 01:30 Acetaminophen (Tylenol Tab) 650 mg Q6H PRN PO PAIN LEVEL 1-3 OR FEVER; Start 06/29/18 at 01:30 Acetaminophen/ Hydrocodone Bitart ([place] (5/325)) 1 tab Q6H PRN PO MODERATE PAIN LEVEL 4-6 Last administered on 07/02/18at 22:45; Admin Dose 1 TAB; Start 06/29/18 at 01:30 Acetaminophen/ Hydrocodone Bitart ([place] (5/325)) 2 tab Q6H PRN PO SEVERE PAIN LEVEL 7-10 Last administered on 06/30/18at 22:43; Admin Dose 2 TAB; Start 06/29/18 at 01:30 Polyethylene Glycol (Miralax) 17 gm BID PRN PO constipation; Start 07/02/18 at 15:30 IV Flush (NS 10 ml) 10 ml PRN PRN IV FLUSH LINE; Start 07/02/18 at 16:30 Piperacillin Sod/ Tazobactam Sod 100 ml @ 200 mls/hr Q6 IVPB Last administered on 07/03/18at 17:03; Admin Dose 200 MLS/HR; Start 07/02/18 at 20:00 Al Hydrox/Mg Hydrox/Simethicone (Mag-Al Plus) 30 ml Q4H PRN PO GASTROINTESTINAL UPSET; Start 07/02/18 at 23:30 Pantoprazole (Protonix Tab) 40 mg DAILY@06 PO Last administered on 07/03/18at 06:36; Admin Dose 40 MG; Start 07/03/18 at 06:00 ANGELIC BASSETT NP Jul 03, 2018 17:14
[2018-07-03 20:00] VITALS: BP 136/76; PULSE 67; RESP 20
[2018-07-04] MEDS: PIPER-TAZO 3.375 GM IV (PMX) 100 ML IVPB SCH ×5 (00:20→23:01)
[2018-07-04 02:00] VITALS: BP 127/61; RESP 19
[2018-07-04] MEDS: PANTOPRAZOLE (EC) 40 MG TAB PO SCH (05:52)
[2018-07-04 07:15] VITALS: BP 117/71; PULSE 65; RESP 16
--- NOTE | 2018-07-04 12:27 | PN ---
Date/Time of Note Date/Time of Note DATE: 07/04/18 TIME: 12:20 Assessment/Plan VTE Prophylaxis Risk score (from Nsg)>0 risk: 1 SCD applied (from Nsg): Yes Pharmacological prophylaxis: heparin Lines/Catheters IV Catheter Type (from Nrsg): PICC Line Central line still needed: Yes (for ABX) Assessment/Plan Assessment/Plan Assessment: Right upper abdominal pain- resolved Left hepatic lobe dominant hepatic cyst, on imaging- aspiration showed purulent drainage showing to be an abscess -s/p CT guided drain- Approximately 93 ml of purulent fluid was aspirated -Estimated at 6.2 x 6 x 4.3 cm Dilated CBD- MRCP neg for CBD obstruction Elevated aminotransferase- improving Plan: Monitor labs- lfs currently trending down MiraLax BID- PRN ABX per ID- has changed to Zosyn given s.e. of nausea Continue present regimen Patient seen in collaboration with Dr. Belcher/Franaz Subjective: Course reviewed with nursing staff Patient interviewed and examined All labs, imaging and other results reviewed Patient is doing well. No over night events. There is a continuous serous drainage in the accordion drain. Patient will remain hospitalized until the drain dc'd per IR. PICC line in place. Patient is seen by ID with recommendations, patient reports resolution of nausea with change of antibiotics. She is tolerating diet well. Having regular bowel movements. Abd US shows small residual abscess can be decreased from the last imaging study. Discharge planning in progress once the drain can be dc'd. With no further recommendations GI will sign off and will be available for consultation upon request. PHYSICAL EXAMINATION: GENERAL: Well developed, well nourished, alert & oriented x 3, in no acute distress SKIN: drain to RUQ EYES: Pupils equal reactive to light and accommodation, no discharge. EARS/NOSE AND THROAT: Ears normal, nose normal. NECK: Supple, no masses CHEST: Inspection within normal limits. CARDIOVASCULAR: Heart: Regular rate and rhythm RESPIRATORY: Lungs clear to auscultation GASTROINTESTINAL AND LIVER: Abdomen: Soft, RUQ tenderness- resolved, non- distended, no hernias, no masses, no organomegaly, no ascites, no guarding, no rebound tenderness, normoactive bowel sounds. Rectal: Deferred. GENITOURINARY: Female genitalia within normal limits. EXTREMITIES: No cyanosis, clubbing or edema. Result Diagram: 07/02/18 0525 07/02/18 0525 Results 24hrs Laboratory Tests Test 07/04/18 10:27 Lab Scanned Report REFERENCE LAB CC: ; Exam/Review of Systems Vital Signs Vitals Vital Signs Date Temp Pulse Resp B/P (MAP) Pulse Ox O2 O2 Flow FiO2 Time Delivery Rate 07/04/18 98.2 65 16 117/71 96 Room Air 07:15 (86) Intake and Output 07/03/18 07/03/18 07/04/18 1515:00 23:00 07:00 IntakeIntake Total 680 ml 340 ml 250 ml OutputOutput Total 10 ml 30 ml 5 ml BalanceBalance 670 ml 310 ml 245 ml Medications Medications Current Medications Acetaminophen (Tylenol Tab) 650 mg Q6H PRN PO MILD PAIN(1-3)OR ELEVATED TEMP; Start 06/29/18 at 00:30 IV Flush (NS 3 ml) 3 ml PER PROTOCOL IV ; Start 06/29/18 at 01:30 Ondansetron HCl (Zofran Inj) 4 mg Q6H PRN IV NAUSEA AND/OR VOMITING; Start 06/29/18 at 01:30 Acetaminophen (Tylenol Tab) 650 mg Q6H PRN PO PAIN LEVEL 1-3 OR FEVER; Start 06/29/18 at 01:30 Acetaminophen/ Hydrocodone Bitart ([place] (5/325)) 1 tab Q6H PRN PO MODERATE PAIN LEVEL 4-6 Last administered on 07/02/18at 22:45; Admin Dose 1 TAB; Start 06/29/18 at 01:30 Acetaminophen/ Hydrocodone Bitart ([place] (5/325)) 2 tab Q6H PRN PO SEVERE PAIN LEVEL 7-10 Last administered on 06/30/18at 22:43; Admin Dose 2 TAB; Start 06/29/18 at 01:30 Polyethylene Glycol (Miralax) 17 gm BID PRN PO constipation; Start 07/02/18 at 15:30 IV Flush (NS 10 ml) 10 ml PRN PRN IV FLUSH LINE; Start 07/02/18 at 16:30 Piperacillin Sod/ Tazobactam Sod 100 ml @ 200 mls/hr Q6 IVPB Last administered on 07/04/18at 11:34; Admin Dose 200 MLS/HR; Start 07/02/18 at 20:00 Al Hydrox/Mg Hydrox/Simethicone (Mag-Al Plus) 30 ml Q4H PRN PO GASTROINTESTINAL UPSET; Start 07/02/18 at 23:30 Pantoprazole (Protonix Tab) 40 mg DAILY@06 PO Last administered on 07/04/18at 05:52; Admin Dose 40 MG; Start 07/03/18 at 06:00 GAYLE PEREZ NP Jul 04, 2018 12:27
[2018-07-04 14:00] VITALS: BP 122/72; PULSE 62; RESP 16
--- NOTE | 2018-07-04 14:46 | PN ---
Date/Time of Note Date/Time of Note DATE: 07/04/18 TIME: 14:45 Assessment/Plan VTE Prophylaxis Risk score (from Nsg)>0 risk: 1 SCD applied (from Nsg): Yes Pharmacological prophylaxis: NA/contraindicated Pharm contraindication: low risk/ambulating Lines/Catheters IV Catheter Type (from Nrsg): PICC Line Central line still needed: Yes Assessment/Plan Hospital Course SUBJECTIVE: Denies any pain. Denies any nausea. OBJECTIVE: Physical Exam General: Adequately build 48 year-old female lying in bed in no apparent distress. HEENT: Normocephalic, atraumatic. Eyes: Anicteric sclerae, conjunctivae clear. ENT: Nasal septum midline, oral mucosa moist. Neck supple, no JVD noticed. Respiratory: Bilaterally clear breath sounds. No use of accessory muscles of respiration. No adventitious breath sounds. Cardiovascular: S1, S2 heard. Regular rate and rhythm. Abdomen: Soft and nondistended. Bowel sounds positive in all 4 quadrants. Minimal epigastric tenderness. Right upper quadrant drain in place that is draining brownish yellow fluid. Genitourinary: Deferred. Extremities: No cyanosis, no clubbing, no edema. Peripheral pulses palpable. Neurologic: Cranial nerves II through XII grossly intact. The patient is awake, alert, and oriented. Skin: Normal skin turgor. No skin rashes. Labs & Vitals per chart ASSESSMENT & PLAN 48-year-old male with comorbidities include dyslipidemia and hypertension who came to the emergency room with chief complaint of abdominal pain that was acute in onset with reported nausea and vomiting. The patient underwent a CT scan of the abdomen and pelvis that was showing 6.2 x 64.3 cm hepatic cyst with a smaller lesion slightly anterior inferior to the dominant cyst. The patient underwent a gallbladder ultrasound that was showing dilated common bile duct measuring up to 6.2 mm. The patient's LFTs were within normal limits. The patient was admitted to inpatient setting for further treatment and evaluation. 1. Hepatic abscess. -Status post CT-guided left lobe hepatic abscess drainage on 06/30/2018. -Interventional radiologist documented aspiration of purulent material raising concern for pyogenic liver abscess. -Blood cultures negative. -Serology negative for Entamoeba histolytica (patient recently visited [facility] in December 2017). -Started empiric antimicrobial therapy with third generation cephalosporin and Flagyl on 06/30/2018 that was switched to Zosyn because of nausea. -Cultures negative to date. S/P PICC line insertion for long-term IV antibiotic therapy. 2. Dilated CBD. -MRCP negative for any obstructing lesions although CBD is dilated. -Gastroenterology following . 3. History of hypertension. -Blood pressure stable without any antihypertensives. 4. Dyslipidemia. -Fasting lipid panel unsatisfactory. -Reinforce a low-cholesterol diet. 5. Fluids, electrolytes, and nutrition. -Low-cholesterol diet. 6. DVT prophylaxis. -Frequent ambulation. 7. Plan. -Continue pain control. -ID following. -Repeat ultrasound of the liver showing decreased size of the abscess. -Needs the drain to be discontinued before discharging the patient Vs arrange for outpatient removal of the drain once the drainage is almost none. The patient was seen in collaboration with Dr. Delgado. Result Diagram: 07/02/1825 07/02/18524 Results 24hrs Laboratory Tests Test 07/04/18 10:27 Lab Scanned Report REFERENCE LAB Exam/Review of Systems Vital Signs Vitals Vital Signs Date Temp Pulse Resp B/P (MAP) Pulse Ox O2 O2 Flow FiO2 Time Delivery Rate 07/04/18 98.2 65 16 117/71 96 Room Air 07:15 (86) Intake and Output 07/03/18 07/03/18 07/04/18 1515:00 23:00 07:00 IntakeIntake Total 680 ml 340 ml 350 ml OutputOutput Total 10 ml 30 ml 5 ml BalanceBalance 670 ml 310 ml 345 ml Medications Medications Current Medications Acetaminophen (Tylenol Tab) 650 mg Q6H PRN PO MILD PAIN(1-3)OR ELEVATED TEMP; Start 06/29/18 at 00:30 IV Flush (NS 3 ml) 3 ml PER PROTOCOL IV ; Start 06/29/18 at 01:30 Ondansetron HCl (Zofran Inj) 4 mg Q6H PRN IV NAUSEA AND/OR VOMITING; Start 06/29/18 at 01:30 Acetaminophen (Tylenol Tab) 650 mg Q6H PRN PO PAIN LEVEL 1-3 OR FEVER; Start 06/29/18 at 01:30 Acetaminophen/ Hydrocodone Bitart ([place] (5/325)) 1 tab Q6H PRN PO MODERATE PAIN LEVEL 4-6 Last administered on 07/02/18at 22:45; Admin Dose 1 TAB; Start 06/29/18 at 01:30 Acetaminophen/ Hydrocodone Bitart ([place] (5/325)) 2 tab Q6H PRN PO SEVERE PAIN LEVEL 7-10 Last administered on 06/30/18at 22:43; Admin Dose 2 TAB; Start 06/29/18 at 01:30 Polyethylene Glycol (Miralax) 17 gm BID PRN PO constipation; Start 07/02/18 at 15:30 IV Flush (NS 10 ml) 10 ml PRN PRN IV FLUSH LINE; Start 07/02/18 at 16:30 Piperacillin Sod/ Tazobactam Sod 100 ml @ 200 mls/hr Q6 IVPB Last administered on 07/04/18at 11:34; Admin Dose 200 MLS/HR; Start 07/02/18 at 20:00 Al Hydrox/Mg Hydrox/Simethicone (Mag-Al Plus) 30 ml Q4H PRN PO GASTROINTESTINAL UPSET; Start 07/02/18 at 23:30 Pantoprazole (Protonix Tab) 40 mg DAILY@06 PO Last administered on 07/04/18at 05:52; Admin Dose 40 MG; Start 07/03/18 at 06:00 ANGELIC BASSETT NP Jul 04, 2018 14:46
[2018-07-04 20:00] VITALS: BP 134/80; PULSE 60; RESP 18
[2018-07-05 02:00] VITALS: BP 136/86; PULSE 62; RESP 18
[2018-07-05] MEDS: PANTOPRAZOLE (EC) 40 MG TAB PO SCH (05:19)
[2018-07-05] MEDS: PIPER-TAZO 3.375 GM IV (PMX) 100 ML IVPB SCH ×3 (05:19→17:04)
[2018-07-05 08:15] VITALS: BP 129/76; PULSE 64; RESP 20
--- NOTE | 2018-07-05 11:39 | PN ---
Date/Time of Note Date/Time of Note DATE: 07/05/18 TIME: 11:38 Assessment/Plan VTE Prophylaxis Risk score (from Nsg)>0 risk: 1 SCD applied (from Nsg): Yes Pharmacological prophylaxis: NA/contraindicated Pharm contraindication: low risk/ambulating Lines/Catheters IV Catheter Type (from Nrsg): PICC Line Central line still needed: Yes Assessment/Plan Hospital Course SUBJECTIVE: Denies any pain. Denies any nausea. OBJECTIVE: Physical Exam General: Adequately build 48 year-old female lying in bed in no apparent distress. HEENT: Normocephalic, atraumatic. Eyes: Anicteric sclerae, conjunctivae clear. ENT: Nasal septum midline, oral mucosa moist. Neck supple, no JVD noticed. Respiratory: Bilaterally clear breath sounds. No use of accessory muscles of respiration. No adventitious breath sounds. Cardiovascular: S1, S2 heard. Regular rate and rhythm. Abdomen: Soft and nondistended. Bowel sounds positive in all 4 quadrants. Minimal epigastric tenderness. Right upper quadrant drain in place that is draining brownish yellow fluid. Genitourinary: Deferred. Extremities: No cyanosis, no clubbing, no edema. Peripheral pulses palpable. Neurologic: Cranial nerves II through XII grossly intact. The patient is awake, alert, and oriented. Skin: Normal skin turgor. No skin rashes. Labs & Vitals per chart ASSESSMENT & PLAN 48-year-old male with comorbidities include dyslipidemia and hypertension who came to the emergency room with chief complaint of abdominal pain that was acute in onset with reported nausea and vomiting. The patient underwent a CT scan of the abdomen and pelvis that was showing 6.2 x 64.3 cm hepatic cyst with a smaller lesion slightly anterior inferior to the dominant cyst. The patient underwent a gallbladder ultrasound that was showing dilated common bile duct measuring up to 6.2 mm. The patient's LFTs were within normal limits. The patient was admitted to inpatient setting for further treatment and evaluation. 1. Hepatic abscess. -Status post CT-guided left lobe hepatic abscess drainage on 06/30/2018. -Interventional radiologist documented aspiration of purulent material raising concern for pyogenic liver abscess. -Blood cultures negative. -Serology negative for Entamoeba histolytica (patient recently visited [facility] in December 2017). -Started empiric antimicrobial therapy with third generation cephalosporin and Flagyl on 06/30/2018 that was switched to Zosyn because of nausea. -Cultures negative to date. S/P PICC line insertion for long-term IV antibiotic therapy. 2. Dilated CBD. -MRCP negative for any obstructing lesions although CBD is dilated. -Gastroenterology following . 3. History of hypertension. -Blood pressure stable without any antihypertensives. 4. Dyslipidemia. -Fasting lipid panel unsatisfactory. -Reinforce a low-cholesterol diet. 5. Fluids, electrolytes, and nutrition. -Low-cholesterol diet. 6. DVT prophylaxis. -Frequent ambulation. 7. Plan. -Continue pain control. -ID following. -Repeat ultrasound of the liver showing decreased size of the abscess. -Needs the drain to be discontinued before discharging the patient Vs arrange for outpatient removal of the drain once the drainage is almost none. The patient was seen in collaboration with Dr. Delgado. Result Diagram: 07/02/1825 07/02/18524 Results 24hrs Laboratory Tests Test 07/05/18 10:47 Lab Scanned Report REFERENCE LAB Exam/Review of Systems Vital Signs Vitals Vital Signs Date Temp Pulse Resp B/P (MAP) Pulse Ox O2 O2 Flow FiO2 Time Delivery Rate 07/05/18 98.1 64 20 129/76 99 08:15 (93) 07/04/18 Room Air 14:00 Intake and Output 07/04/18 07/04/18 07/05/18 1515:00 23:00 07:00 IntakeIntake Total 700 ml 500 ml 880 ml OutputOutput Total 10 ml 10 ml BalanceBalance 700 ml 490 ml 870 ml Medications Medications Current Medications Acetaminophen (Tylenol Tab) 650 mg Q6H PRN PO MILD PAIN(1-3)OR ELEVATED TEMP; Start 06/29/18 at 00:30 IV Flush (NS 3 ml) 3 ml PER PROTOCOL IV ; Start 06/29/18 at 01:30 Ondansetron HCl (Zofran Inj) 4 mg Q6H PRN IV NAUSEA AND/OR VOMITING; Start 06/29/18 at 01:30 Acetaminophen (Tylenol Tab) 650 mg Q6H PRN PO PAIN LEVEL 1-3 OR FEVER; Start 06/29/18 at 01:30 Acetaminophen/ Hydrocodone Bitart ([place] (5/325)) 1 tab Q6H PRN PO MODERATE PAIN LEVEL 4-6 Last administered on 07/02/18at 22:45; Admin Dose 1 TAB; Start 06/29/18 at 01:30 Acetaminophen/ Hydrocodone Bitart ([place] (5/325)) 2 tab Q6H PRN PO SEVERE PAIN LEVEL 7-10 Last administered on 06/30/18at 22:43; Admin Dose 2 TAB; Start 06/29/18 at 01:30 Polyethylene Glycol (Miralax) 17 gm BID PRN PO constipation; Start 07/02/18 at 15:30 IV Flush (NS 10 ml) 10 ml PRN PRN IV FLUSH LINE; Start 07/02/18 at 16:30 Piperacillin Sod/ Tazobactam Sod 100 ml @ 200 mls/hr Q6 IVPB Last administered on 07/05/18at 05:19; Admin Dose 200 MLS/HR; Start 07/02/18 at 20:00 Al Hydrox/Mg Hydrox/Simethicone (Mag-Al Plus) 30 ml Q4H PRN PO GASTROINTESTINAL UPSET; Start 07/02/18 at 23:30 Pantoprazole (Protonix Tab) 40 mg DAILY@06 PO Last administered on 07/05/18at 05:19; Admin Dose 40 MG; Start 07/03/18 at 06:00 ANGELIC BASSETT NP Jul 05, 2018 11:39
[2018-07-05 14:00] VITALS: BP 136/73; PULSE 64; RESP 19
[2018-07-05 19:56] VITALS: BP 134/80; PULSE 75; RESP 18
[2018-07-06] MEDS: PIPER-TAZO 3.375 GM IV (PMX) 100 ML IVPB SCH ×4 (00:31→17:13)
[2018-07-06 02:38] VITALS: BP 133/74; PULSE 66; RESP 18
[2018-07-06] MEDS: PANTOPRAZOLE (EC) 40 MG TAB PO SCH (06:17)
--- NOTE | 2018-07-06 07:39 | CONS ---
Date/Time of Note Date/Time of Note DATE: 07/06/18 TIME: 07:36 Assessment/Plan Assessment/Plan Hospital Course 1) liver abscess fluid from drain is already clear I suspect this is more likely a liver cyst that became infected from the biliary tract I will order serology for entamoeba histolytica and echinococcus but more likely this is bacterial continue with ceftriaxone/flagyl cx from abscess is NGTD but it is less than 24 hours but pt did get a dose of zosyn on 06/28 if nausea persists will change antibiotics to unasyn 07/02 - abscess cx remains NGTD due to nausea will d/c ceftriaxone and flagyl start IV zosyn PICC line ordered as pt will need 2-4 weeks of IV antibiotics minimal drainage from accordion drain will order RUQ u/s to evaluate the abscess cavity pt will need home IV antibiotics for 2-4 weeks depending upon how quickly the abscess cavity shrinks after the IV zosyn will switch to augmentin and the usual length of treatment for liver abscesses is 2-4 months 07/03 - picc line in place abd u/s shows much smaller abscess, abscess cx remains Neg when drainage stops then would get CT abd to see if drain could be removed home health referral made in anticipation of home IV zosyn 07/06 - pt doing well and no drainage in last 24 hours I will order CT of abd and if abscess is small or gone then to remove the drain if abscess still present but tip of catheter is no longer in proper place then to re-position if drain is removed then can discharge when IV zosyn is set up at home for patient 2) HTN 3) dyslipidemia Result Diagram: 07/06/18 0442 07/06/18 0442 Results 24hrs Laboratory Tests Test 07/05/18 10:47 07/06/18 04:42 Lab Scanned Report REFERENCE LAB White Blood Count 6.0 Red Blood Count 4.40 Hemoglobin 13.4 Hematocrit 39.5 Mean Corpuscular Volume 89.8 Mean Corpuscular Hemoglobin 30.5 Mean Corpuscular Hemoglobin Concent 33.9 Red Cell Distribution Width 11.8 Platelet Count 279 Mean Platelet Volume 9.3 Immature Granulocytes % 0.200 Neutrophils % 51.8 Lymphocytes % 38.2 Monocytes % 5.8 Eosinophils % 2.8 Basophils % 1.2 Nucleated Red Blood Cells % 0.0 Immature Granulocytes # 0.010 Neutrophils # 3.1 Lymphocytes # 2.3 Monocytes # 0.4 Eosinophils # 0.2 Basophils # 0.1 Nucleated Red Blood Cells # 0.0 Sodium Level 141 Potassium Level 4.0 Chloride Level 107 Carbon Dioxide Level 25 Anion Gap 9 Blood Urea Nitrogen 9 Creatinine 0.58 Est Glomerular Filtrat Rate mL/min > 60 Glucose Level 97 Calcium Level 9.3 Phosphorus Level 4.9 Magnesium Level 2.2 Total Bilirubin 0.3 Direct Bilirubin 0.00 Indirect Bilirubin 0.3 Aspartate Amino Transf (AST/SGOT) 43 Alanine Aminotransferase (ALT/SGPT) 71 H Alkaline Phosphatase 43 Total Protein 6.9 Albumin 3.9 Globulin 3.00 Albumin/Globulin Ratio 1.30 Consultation Date/Type/Reason Admit Date/Time Jun 28, 2018 at 21:43 Initial Consult Date 07/01/18 Type of Consult ID 24 HR Interval Summary Free Text/Dictation pt is doing well no N, V, D no SOB no abd pain nurse reports no output from drain in last 24 hours Exam/Review of Systems Vital Signs Vitals Vital Signs Date Temp Pulse Resp B/P (MAP) Pulse Ox O2 O2 Flow FiO2 Time Delivery Rate 07/06/18 98.1 66 18 133/74 99 02:38 (93) 07/04/18 Room Air 14:00 Intake and Output 07/05/18 07/05/18 07/06/18 1515:00 23:00 07:00 IntakeIntake Total 500 ml 1100 ml 340 ml BalanceBalance 500 ml 1100 ml 340 ml Exam Constitutional: alert, oriented Respiratory: clear to auscultation Cardiovascular: regular rate and rhythm Gastrointestinal: soft, non-tender Medications Medications Current Medications Acetaminophen (Tylenol Tab) 650 mg Q6H PRN PO MILD PAIN(1-3)OR ELEVATED TEMP; Start 06/29/18 at 00:30 IV Flush (NS 3 ml) 3 ml PER PROTOCOL IV ; Start 06/29/18 at 01:30 Ondansetron HCl (Zofran Inj) 4 mg Q6H PRN IV NAUSEA AND/OR VOMITING; Start 06/29/18 at 01:30 Acetaminophen (Tylenol Tab) 650 mg Q6H PRN PO PAIN LEVEL 1-3 OR FEVER; Start 06/29/18 at 01:30 Acetaminophen/ Hydrocodone Bitart ([place] (5/325)) 1 tab Q6H PRN PO MODERATE PAIN LEVEL 4-6 Last administered on 07/02/18at 22:45; Admin Dose 1 TAB; Start 06/29/18 at 01:30 Acetaminophen/ Hydrocodone Bitart ([place] (5/325)) 2 tab Q6H PRN PO SEVERE PAIN LEVEL 7-10 Last administered on 06/30/18at 22:43; Admin Dose 2 TAB; Start 06/29/18 at 01:30 Polyethylene Glycol (Miralax) 17 gm BID PRN PO constipation; Start 07/02/18 at 15:30 IV Flush (NS 10 ml) 10 ml PRN PRN IV FLUSH LINE; Start 07/02/18 at 16:30 Piperacillin Sod/ Tazobactam Sod 100 ml @ 200 mls/hr Q6 IVPB Last administered on 07/06/18at 06:17; Admin Dose 200 MLS/HR; Start 07/02/18 at 20:00 Al Hydrox/Mg Hydrox/Simethicone (Mag-Al Plus) 30 ml Q4H PRN PO GASTROINTESTINAL UPSET; Start 07/02/18 at 23:30 Pantoprazole (Protonix Tab) 40 mg DAILY@06 PO Last administered on 07/06/18at 06:17; Admin Dose 40 MG; Start 07/03/18 at 06:00 HECTOR BARRERA MD Jul 06, 2018 07:39
[2018-07-06 08:35] VITALS: BP 125/70; PULSE 60; RESP 18
[2018-07-06] MEDS ORDERED: IOHEXOL 300MG/ML 30 ML BTL ONE (11:46)
[2018-07-06 15:23] VITALS: BP 118/74; PULSE 72; RESP 18
--- NOTE | 2018-07-06 17:10 | PN ---
Date/Time of Note Date/Time of Note DATE: 07/06/18 TIME: 17:04 Assessment/Plan VTE Prophylaxis Risk score (from Ns)>0 risk: 1 SCD applied (from Ns): Yes Pharmacological prophylaxis: other Pharm contraindication: low risk/ambulating Lines/Catheters IV Catheter Type (from Nrsg): PICC Line Central line still needed: Yes Urinary Cath still in place: No Assessment/Plan Assessment/Plan 1. Hepatic abscess, status post CT-guided left lobe hepatic abscess drainage on 06/30/2018, on zosyn, follow up with CT scan ordered per ID 2. Dilated CBD, MRCP negative for any obstructing lesions 3. History of hypertension, controlled 4. Dyslipidemia, Reinforce a low-cholesterol diet. 5. DVT prophylaxis, SCDs Result Diagram: 07/06/1844107/06/18441 Results 24hrs Laboratory Tests Test 07/06/18 04:42 White Blood Count 6.0 Red Blood Count 4.40 Hemoglobin 13.4 Hematocrit 39.5 Mean Corpuscular Volume 89.8 Mean Corpuscular Hemoglobin 30.5 Mean Corpuscular Hemoglobin Concent 33.9 Red Cell Distribution Width 11.8 Platelet Count 279 Mean Platelet Volume 9.3 Immature Granulocytes % 0.200 Neutrophils % 51.8 Lymphocytes % 38.2 Monocytes % 5.8 Eosinophils % 2.8 Basophils % 1.2 Nucleated Red Blood Cells % 0.0 Immature Granulocytes # 0.010 Neutrophils # 3.1 Lymphocytes # 2.3 Monocytes # 0.4 Eosinophils # 0.2 Basophils # 0.1 Nucleated Red Blood Cells # 0.0 Sodium Level 141 Potassium Level 4.0 Chloride Level 107 Carbon Dioxide Level 25 Anion Gap 9 Blood Urea Nitrogen 9 Creatinine 0.58 Est Glomerular Filtrat Rate mL/min > 60 Glucose Level 97 Calcium Level 9.3 Phosphorus Level 4.9 Magnesium Level 2.2 Total Bilirubin 0.3 Direct Bilirubin 0.00 Indirect Bilirubin 0.3 Aspartate Amino Transf (AST/SGOT) 43 Alanine Aminotransferase (ALT/SGPT) 71 H Alkaline Phosphatase 43 Total Protein 6.9 Albumin 3.9 Globulin 3.00 Albumin/Globulin Ratio 1.30 Exam/Review of Systems Vital Signs Vitals Vital Signs Date Temp Pulse Resp B/P (MAP) Pulse Ox O2 O2 Flow FiO2 Time Delivery Rate 07/06/18 98.5 72 18 118/74 99 15:23 (89) 07/04/18 Room Air 14:00 Intake and Output 07/05/18 07/05/18 07/06/18 1515:00 23:00 07:00 IntakeIntake Total 500 ml 1100 ml 340 ml BalanceBalance 500 ml 1100 ml 340 ml Medications Medications Current Medications Acetaminophen (Tylenol Tab) 650 mg Q6H PRN PO MILD PAIN(1-3)OR ELEVATED TEMP; Start 06/29/18 at 00:30 IV Flush (NS 3 ml) 3 ml PER PROTOCOL IV ; Start 06/29/18 at 01:30 Ondansetron HCl (Zofran Inj) 4 mg Q6H PRN IV NAUSEA AND/OR VOMITING; Start 06/29/18 at 01:30 Acetaminophen (Tylenol Tab) 650 mg Q6H PRN PO PAIN LEVEL 1-3 OR FEVER; Start 06/29/18 at 01:30 Acetaminophen/ Hydrocodone Bitart ([place] (5/325)) 1 tab Q6H PRN PO MODERATE PAIN LEVEL 4-6 Last administered on 07/02/18at 22:45; Admin Dose 1 TAB; Start 06/29/18 at 01:30 Acetaminophen/ Hydrocodone Bitart ([place] (5/325)) 2 tab Q6H PRN PO SEVERE PAIN LEVEL 7-10 Last administered on 06/30/18at 22:43; Admin Dose 2 TAB; Start 06/29/18 at 01:30 Polyethylene Glycol (Miralax) 17 gm BID PRN PO constipation; Start 07/02/18 at 15:30 IV Flush (NS 10 ml) 10 ml PRN PRN IV FLUSH LINE; Start 07/02/18 at 16:30 Piperacillin Sod/ Tazobactam Sod 100 ml @ 200 mls/hr Q6 IVPB Last administered on 07/06/18at 12:40; Admin Dose 200 MLS/HR; Start 07/02/18 at 20:00 Al Hydrox/Mg Hydrox/Simethicone (Mag-Al Plus) 30 ml Q4H PRN PO GASTROINTESTINAL UPSET; Start 07/02/18 at 23:30 Pantoprazole (Protonix Tab) 40 mg DAILY@06 PO Last administered on 07/06/18at 06:17; Admin Dose 40 MG; Start 07/03/18 at 06:00 FIORELLA LO MD Jul 06, 2018 17:10
[2018-07-06 20:00] VITALS: BP 121/67; PULSE 73; RESP 19
[2018-07-06] MEDS: ACETAMINOPHEN 325 MG TAB PO PRN (22:16)
[2018-07-07] MEDS: PIPER-TAZO 3.375 GM IV (PMX) 100 ML IVPB SCH ×4 (00:05→18:04)
[2018-07-07 02:00] VITALS: BP 110/65; PULSE 60; RESP 19
[2018-07-07] MEDS: PANTOPRAZOLE (EC) 40 MG TAB PO SCH (06:22)
--- NOTE | 2018-07-07 06:35 | CONS ---
Date/Time of Note Date/Time of Note DATE: 07/07/18 TIME: 06:32 Assessment/Plan Assessment/Plan Hospital Course 1) liver abscess fluid from drain is already clear I suspect this is more likely a liver cyst that became infected from the biliary tract I will order serology for entamoeba histolytica and echinococcus but more likely this is bacterial continue with ceftriaxone/flagyl cx from abscess is NGTD but it is less than 24 hours but pt did get a dose of zosyn on 06/28 if nausea persists will change antibiotics to unasyn 07/02 - abscess cx remains NGTD due to nausea will d/c ceftriaxone and flagyl start IV zosyn PICC line ordered as pt will need 2-4 weeks of IV antibiotics minimal drainage from accordion drain will order RUQ u/s to evaluate the abscess cavity pt will need home IV antibiotics for 2-4 weeks depending upon how quickly the abscess cavity shrinks after the IV zosyn will switch to augmentin and the usual length of treatment for liver abscesses is 2-4 months 07/03 - picc line in place abd u/s shows much smaller abscess, abscess cx remains Neg when drainage stops then would get CT abd to see if drain could be removed home health referral made in anticipation of home IV zosyn 07/06 - pt doing well and no drainage in last 24 hours I will order CT of abd and if abscess is small or gone then to remove the drain if abscess still present but tip of catheter is no longer in proper place then to re-position if drain is removed then can discharge when IV zosyn is set up at home for patient 07/07 - abscess was small around 2cm only 10cc of drainage in last 24 hours will have radiology remove drainage catheter continue with iv zosyn thru 08/02/18 (referral made) after zosyn pt to start po augmentin 875mg BID for 1-2 months (rx left with nurse) I would get a repeat CT of abd with IV contrast only in 1 month ok for d/c from ID perspective 2) HTN 3) dyslipidemia Result Diagram: 07/06/18 0442 07/06/18 0442 Consultation Date/Type/Reason Admit Date/Time Jun 28, 2018 at 21:43 Initial Consult Date 07/01/18 Type of Consult ID 24 HR Interval Summary Free Text/Dictation pt is doing well only 10cc of drainage in last 24 hours no N, V, D Exam/Review of Systems Vital Signs Vitals Vital Signs Date Temp Pulse Resp B/P (MAP) Pulse Ox O2 O2 Flow FiO2 Time Delivery Rate 07/07/18 98.5 60 19 110/65 97 02:00 (80) 07/04/18 Room Air 14:00 Intake and Output 07/06/18 07/06/18 07/07/18 1515:00 23:00 07:00 IntakeIntake Total 340 ml 340 ml 100 ml OutputOutput Total 10 ml 0 ml BalanceBalance 330 ml 340 ml 100 ml Exam Constitutional: alert, oriented Gastrointestinal: soft, other (drainage is clear yellow) Medications Medications Current Medications Acetaminophen (Tylenol Tab) 650 mg Q6H PRN PO MILD PAIN(1-3)OR ELEVATED TEMP Last administered on 07/06/18at 22:16; Admin Dose 650 MG; Start 06/29/18 at 00:30 IV Flush (NS 3 ml) 3 ml PER PROTOCOL IV ; Start 06/29/18 at 01:30 Ondansetron HCl (Zofran Inj) 4 mg Q6H PRN IV NAUSEA AND/OR VOMITING; Start 06/29/18 at 01:30 Acetaminophen (Tylenol Tab) 650 mg Q6H PRN PO PAIN LEVEL 1-3 OR FEVER; Start 06/29/18 at 01:30 Acetaminophen/ Hydrocodone Bitart ([place] (5/325)) 1 tab Q6H PRN PO MODERATE P AIN LEVEL 4-6 Last administered on 07/02/18at 22:45; Admin Dose 1 TAB; Start 06/29/18 at 01:30 Acetaminophen/ Hydrocodone Bitart ([place] (5/325)) 2 tab Q6H PRN PO SEVERE PAIN LEVEL 7-10 Last administered on 06/30/18at 22:43; Admin Dose 2 TAB; Start 06/29/18 at 01:30 Polyethylene Glycol (Miralax) 17 gm BID PRN PO constipation; Start 07/02/18 at 15:30 IV Flush (NS 10 ml) 10 ml PRN PRN IV FLUSH LINE; Start 07/02/18 at 16:30 Piperacillin Sod/ Tazobactam Sod 100 ml @ 200 mls/hr Q6 IVPB Last administered on 07/07/18at 06:22; Admin Dose 200 MLS/HR; Start 07/02/18 at 20:00 Al Hydrox/Mg Hydrox/Simethicone (Mag-Al Plus) 30 ml Q4H PRN PO GASTROINTESTINAL UPSET; Start 07/02/18 at 23:30 Pantoprazole (Protonix Tab) 40 mg DAILY@06 PO Last administered on 07/07/18at 06:22; Admin Dose 40 MG; Start 07/03/18 at 06:00 HECTOR BARRERA MD Jul 07, 2018 06:35
[2018-07-07 08:00] VITALS: BP 124/73; PULSE 66; RESP 18
[2018-07-07] MEDS: ACETAMINOPHEN 325 MG TAB PO PRN (11:19)
[2018-07-07] MEDS ORDERED: PIPE3.374 IVPB (13:15)
--- NOTE | 2018-07-07 13:23 | DS ---
Date/Time of Note Date/Time of Note DATE: 07/07/18 TIME: 13:17 Discharge Summary Admission/Discharge Info Admit Date/Time Jun 28, 2018 at 21:43 Discharge Date/Time Discharge Diagnosis 1. Hepatic abscess, status post CT-guided left lobe hepatic abscess drainage on 06/30/2018, on zosyn for 2-4 weeks, follow up with Dr. Flores 2. Dilated CBD, MRCP negative for any obstructing lesions 3. History of hypertension, no antihypertensive needed now 4. Dyslipidemia, Reinforce a low-cholesterol diet. Patient Condition: Stable Hospital Course This is a 48-year-old female with a history of hypertension and dyslipidemia who presented to ER complaining of abdominal pain. Pain has been progressively getting worse. Mainly localized in the right upper quadrant area and also in epigastric area. Also reported nausea. Denied fever/chills, chest pain or shortness of breath. Reported similar symptoms years ago. When presented to ER, abdominal ultrasound shows Fluid collection adjacent to or within the liver anteriorly measuring 6.2 x 4.3 x 6.4 cm. This may be due to hematoma. There is an adjacent hyperechoic nodule in the liver measuring 1.4 x 1.4 x 2.4 cm which may be a hemangioma as well as CBD dilated at 6.[address] abdomen/pelvis shows. This was followed by CT abdomen/pelvis stated that the ultrasound finding is consistent with dominant hepatic cysts measuring 6.2 x 6 x 4.3 cm. Also noted on the CT of leiomyoma and central L4-5 disc protrusions. 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 Only reported occasional pain. no alarming symptoms. Patient got CT-guided liver abscess drained on 06/30/2018, cultures are negative. It is suspected a liver cyst that became infected from the biliary tract. ID recommends 2-4 weeks iv zosyn. Drainage is removed on 07/07/2018. Patient will follow up with PCP and ID in office and she will get zosyn through PICC line per home health. MRCP is negative for CBD obstruction. Home Meds Active Scripts [id number],Iso (ZOSYN 3.375 GM GALAXY BAG) 3.375 Gm/50 Ml Froz.piggy, 3.375 GM IVPB Q6 for 21 Days, EA Prov:FIORELLA LO MD 07/07/18 Follow-up Plan PCP and Dr. Flores in one week Primary Care Provider Not On Staff Doctor FIORELLA LO MD Jul 07, 2018 13:23
== END 2018-07-07 18:55 | disposition home or self-care (01) | DRG 443 ==
LOC: E/R 15:29 → PP2 21:43
PROVIDERS: ADMIT Internal Medicine; ATTEND Internal Medicine
PROC: 0F923ZX Drainage of Left Lobe Liver, Percutaneous Approach, Diagnostic (ICD-10-PCS; principal; 2018-06-30)
PROC: 02HV33Z Insertion of Infusion Device into Superior Vena Cava, Percutaneous Approach (ICD-10-PCS; 2018-07-02)
DX: K75.0 Abscess of liver (principal); I10 Essential (primary) hypertension; E78.5 Hyperlipidemia, unspecified; K76.89 Other specified diseases of liver
CPT/HCPCS: 36415; 36569; 36589; 71045; 74150; 74178; 74181; 76705; 76937; 77012; 80053; 80061; 81001; 82105; 83690; 83735; 84100; 84484; 84703; 85025; 85610; 85730; 86704; 86709; 86803; 87040; 87070; 87075; 87340; 88104; 93005; J0696; J2543; J3010; Q9967

== ENCOUNTER 2018-07-08 22:41 | Emergency (ER) | payer SELFPAY ==
[~2018-07-08] VITALS: Ht 149.9 cm; Wt 53.1 kg
[~2018-07-08 22:41] MED LIST: PIPE3.374 IVPB
[2018-07-08 22:52] VITALS: Ht 149.9 cm; Wt 53.1 kg
== END 2018-07-08 23:11 | disposition left against medical advice (07) ==
LOC: E/R 22:41
DX: Z53.21 Procedure and treatment not carried out due to patient leaving prior to being seen by health care provider (principal)